=== PATIENT | male | born 1930 | race Caucasian/White ===

== ENCOUNTER 2020-07-09 06:41 | Emergency (ER) | payer MEDICARE, BC ==
--- NOTE | 2020-07-09 07:05 | EDM.PDOC ---
ED HPI GENERAL MEDICAL PROBLEM - General Chief Complaint: Upper Extremity Injury/Pain Stated Complaint: [facility] Time Seen by Provider: 07/09/20 07:04 Source of Information: Reports: Patient, EMS, RN Notes Reviewed - History of Present Illness INITIAL COMMENTS - FREE TEXT/NARRATIVE: 89 yr old male lost his balance getting up to go to the bathroom. Fell more to the L side. L shoulder pain is the worst but also L elbow, R shoulder, mild R wrist discomfort. No chest pain or difficulty breathing. Was found to be covid pos. yesterday with routine testing. He lives at [facility] living. He did not know he was ill. Not sure if he has had fever. He did his head and L face. He does take aspirin but no other blood thinners. Left Shoulder Pain Score (Numeric/FACES): 7 - Related Data Allergies Allergy/AdvReac Type Severity Reaction Status Date / Time ibuprofen Allergy Unknown Other Verified 07/09/20 06:57 lisinopril Allergy Other Verified 07/09/20 06:57 simvastatin Allergy Other Verified 07/09/20 06:57 Home Meds: Home Meds Acetaminophen 1,000 mg PO TID PRN 07/09/20 [History] Furosemide 20 mg PO DAILY 07/09/20 [History] Gabapentin [Neurontin] 100 mg PO BID 07/09/20 [History] Levothyroxine [Synthroid] 100 mcg PO DAILY 07/09/20 [History] Tamsulosin [Flomax] 0.4 mg PO BID 07/09/20 [History] Triamterene/Hydrochlorothiazid [Triamterene-HCTZ 75-50 MG] 25 - 37.5 mg PO DAILY 07/09/20 [History] polyethylene glycoL 3350 [MiraLAX] 17 gm PO BEDTIME 07/09/20 [History] traMADol [Ultram] 50 mg PO QID PRN 07/09/20 [History] Past Medical History HEENT History: Reports: Hard of Hearing, Impaired Vision 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 - Infectious Disease History Infectious Disease History: Reports: Novel Coronavirus - Past Surgical History HEENT Surgical History: Reports: Cataract Surgery Social & Family History - Tobacco Use Tobacco Use Status *Q: Former Tobacco User Used Tobacco, but Quit: Yes Month/Year Tobacco Last Used: 1999 - Caffeine Use Caffeine Use: Reports: None - Recreational Drug Use Recreational Drug Use: No Review of Systems - Review of Systems Review Of Systems: See Below Constitutional: Denies: Chills, Fever Ears: Reports: No Symptoms Nose: Reports: No Symptoms Mouth/Throat: Reports: No Symptoms Respiratory: Reports: Cough (occasiona) Cardiovascular: Denies: Chest Pain GI/Abdominal: Denies: Abdominal Pain, Nausea, Vomiting Musculoskeletal: Reports: Shoulder Pain, Joint Pain (L elbow, R wrist, bilat shoulder). Denies: Neck Pain, Back Pain, Leg Pain Skin: Reports: Bruising, Other (Skin tear R elbow) Neurological: Reports: Dizziness (mild), Weakness (generalized, mild). Denies: Headache, Numbness, Tingling ED EXAM, GENERAL - Physical Exam Exam: See Below General Appearance: Alert, No Apparent Distress Eye Exam: Bilateral Eye: PERRL Throat/Mouth: Normal Inspection Head: Other (small abrasion L forehead and L face) Respiratory/Chest: No Respiratory Distress, Lungs Clear, Normal Breath Sounds, Other (very mild tenderness R lat chest wall). No: Rales, Rhonchi, Wheezing Cardiovascular: Regular Rate, Rhythm GI/Abdominal: Soft, Non-Tender Extremities: Other (mild tenderness both shoulders, L elbow, R wrist, mild pain with motion) Neurological: Alert, Oriented, No Motor/Sensory Deficits Skin Exam: Warm, Dry, Other (small skin tear R elbow) Course - Vital Signs Last Recorded V/S: Last Vital Signs Temp 99.3 F 07/09/20 06:47 Pulse 85 07/09/20 06:47 Resp 22 H 07/09/20 06:47 BP 145/64 H 07/09/20 06:47 Pulse Ox 98 07/09/20 06:47 - Orders/Labs/Meds Orders: Active Orders 24 hr Category Date Time Status Chest 1V Frontal [CR] Stat Exams 07/09/20 07:26 Taken Elbow Min 3V Lt [CR] Stat Exams 07/09/20 07:24 Taken Head wo Cont [CT] Stat Exams 07/09/20 07:25 Taken Pelvis 1V or 2V [CR] Stat Exams 07/09/20 07:24 Taken Shoulder Comp Lt [CR] Stat Exams 07/09/20 07:25 Taken Shoulder Comp Rt [CR] Stat Exams 07/09/20 07:25 Taken Wrist Comp Min 3V Rt [CR] Stat Exams 07/09/20 07:25 Taken Meds: Medications Discontinued Medications Generic Name Dose Route Start Last Admin Trade Name Rashad PRN Reason Stop Dose Admin Acetaminophen 975 mg 07/09/20 10:59 07/09/20 11:03 Tylenol PO 07/09/20 11:00 975 mg NOW ONE Administration Tramadol HCl 50 mg 07/09/20 10:58 07/09/20 11:03 Ultram PO 07/09/20 10:59 50 mg ONETIME ONE Administration - Re-Assessments/Exams Free Text/Narrative Re-Assessment/Exam: 07/09/20 10:12. X rays show no fx. CXR shows mild pul congestion. Sats have been good in the 93 to 95 % range. Head CT no acute findings. Will see if he is able to walk OK. If so he should be OK to go back to [facility] 07/09/20 10:58. Did OK walking with walker, 02 sats 96 to 99 %. 07/09/20 12:55. His nurse has discussed with charge nurse for [facility] they do accept him back. Discharge instr. as documented. Departure - Departure Time of Disposition: 13:09 Disposition: Home, Self-Care 01 Condition: Fair Clinical Impression: Fall, Shoulder contusion, COVID-19 virus infection - Discharge Information Referrals: PCP,None [Ordering Only Provider] - Forms: ED Department Discharge Additional Instructions: Rest. Continue isolation for covid infection. Use walker at all times. Drink plenty of water to maintain hydration. Return to ED for severe difficulty breathing or otherwise as needed. Sepsis Event Note (ED) - Evaluation Sepsis Screening Result: No Definite Risk - Focused Exam Vital Signs: Vital Signs Temp Pulse Resp BP Pulse Ox 07/09/20 06:47 99.3 F 85 22 H 145/64 H 98 - My Orders Last 24 Hours: My Active Orders 07/09/20 07:24 Elbow Min 3V Lt [CR] Stat Pelvis 1V or 2V [CR] Stat 07/09/20 07:25 Head wo Cont [CT] Stat Shoulder Comp Lt [CR] Stat Shoulder Comp Rt [CR] Stat Wrist Comp Min 3V Rt [CR] Stat 07/09/20 07:26 Chest 1V Frontal [CR] Stat - Assessment/Plan Last 24 Hours: My Active Orders 07/09/20 07:24 Elbow Min 3V Lt [CR] Stat Pelvis 1V or 2V [CR] Stat 07/09/20 07:25 Head wo Cont [CT] Stat Shoulder Comp Lt [CR] Stat Shoulder Comp Rt [CR] Stat Wrist Comp Min 3V Rt [CR] Stat 07/09/20 07:26 Chest 1V Frontal [CR] Stat
[2020-07-09] MEDS ORDERED: traMADol 50 MG Tab PO ONE (10:58)
[2020-07-09] MEDS ORDERED: Acetaminophen 325 MG Tab PO ONE (10:59)
--- NOTE | 2020-07-12 10:01 | CT ---
PROCEDURE INFORMATION: Exam: CT Head Without Contrast Exam date and time: 07/09/2020 8:58 AM Age: 89 years old Clinical indication: Injury or trauma; Blunt trauma (contusions or hematomas); Patient HX: Fall, left facial and forehead contusion, PT unable to hold still TECHNIQUE: Imaging protocol: Computed tomography of the head without contrast. Radiation optimization: All CT scans at this facility use at least one of these dose optimization techniques: automated exposure control; mA and/or kV adjustment per patient size (includes targeted exams where dose is matched to clinical indication); or iterative reconstruction. COMPARISON: No relevant prior studies available. FINDINGS: Limitations: There is motion artifact partially degrading examination, greatest superiorly. Brain: There is no acute intracranial hemorrhage. There is lucency in the cerebral white matter, likely microvascular disease although non-specific. Vicente white differentiation is intact. There are no extraaxial fluid collections. No evidence of mass. There is no mass effect or midline shift. Cerebral ventricles: The ventricles and sulci are enlarged, consistent with volume loss / atrophy. No hydrocephalus. Bones/joints: No acute fracture. Paranasal sinuses: There is mild mucosal thickening in ethmoid and maxillary sinuses. Mastoid air cells: No significant mastoid effusion. Orbital cavity: There have been bilateral intraocular lens replacements likely related to cataract surgery. Vasculature: There is vascular calcification. Soft tissues: Unremarkable as visualized. IMPRESSION: 1. Partially motion degraded examination. No evidence of acute intracranial abnormality. No evidence of acute infarction, hemorrhage, or mass. 2. Atrophy and microvascular disease. Thank you for allowing us to participate in the care of your patient. Dictated and Authenticated by: Maura Mclean MD 07/09/2020 10:40 AM Central Time ([place] & [place]) [facility]
--- NOTE | 2020-07-12 10:01 | CR ---
PROCEDURE INFORMATION: Exam: XR Chest, 1 View Exam date and time: 07/09/2020 9:10 AM Age: 89 years old Clinical indication: Injury or trauma; Blunt trauma (contusions or hematomas); Injury details: Fall shoulder pain HX covid positive TECHNIQUE: Imaging protocol: XR of the chest Views: 1 view. COMPARISON: No relevant prior studies available. FINDINGS: Lungs: Lung markings are slightly prominent. No definite focal consolidation or infiltrate. Pleural space: No significant visible pleural effusion. No pneumothorax. Heart/Mediastinum: Cardiac silhouette is mildly prominent. Bones/joints: No acute finding. IMPRESSION: Mild prominence pulmonary markings. No well-defined focal consolidation or infiltrate. Thank you for allowing us to participate in the care of your patient. Dictated and Authenticated by: Maura Mclean MD 07/09/2020 12:12 PM Central Time ([place] & [place]) J[facility]
--- NOTE | 2020-07-12 10:02 | CR ---
PROCEDURE INFORMATION: Exam: XR Pelvis Exam date and time: 07/09/2020 9:14 AM Age: 89 years old Clinical indication: Injury or trauma; Blunt trauma (contusions or hematomas); Bilateral; Pelvic region; Injury details: Fall trauma TECHNIQUE: Imaging protocol: XR pelvis. Views: 1 or 2 view. COMPARISON: No relevant prior studies available. FINDINGS: Bones/joints: There are degenerative changes and mild levoscoliosis in lower spine. There is no evidence of acute fracture. No dislocation. Symphysis pubis and sacroiliac joints appear intact. Soft tissues: Unremarkable. IMPRESSION: No evidence of fracture or dislocation. Thank you for allowing us to participate in the care of your patient. Dictated and Authenticated by: Maura Mclean MD 07/09/2020 12:05 PM Central Time ([place] & [place]) [facility]
--- NOTE | 2020-07-12 10:03 | CR ---
PROCEDURE INFORMATION: Exam: XR Left Shoulder Exam date and time: 07/09/2020 9:19 AM Age: 89 years old Clinical indication: Injury or trauma; Fall; Blunt trauma (contusions or hematomas); Shoulder; Left TECHNIQUE: Imaging protocol: XR Left shoulder. Views: 2 or more views. COMPARISON: No relevant prior studies available. FINDINGS: Bones/joints: There is no evidence of acute fracture. No dislocation. Mild degenerative changes. Soft tissues: Normal. IMPRESSION: No evidence of fracture or dislocation. Thank you for allowing us to participate in the care of your patient. Dictated and Authenticated by: Maura Mclean MD 07/09/2020 12:05 PM Central Time ([place] & [place]) [facility]
--- NOTE | 2020-07-12 10:04 | CR ---
PROCEDURE INFORMATION: Exam: XR Right Shoulder Exam date and time: 07/09/2020 9:25 AM Age: 89 years old Clinical indication: Injury or trauma; Fall; Blunt trauma (contusions or hematomas); Shoulder; Right TECHNIQUE: Imaging protocol: XR Right shoulder. Views: 2 or more views. COMPARISON: DX Shoulder Comp Lt 07/09/2020 9:19 AM FINDINGS: Bones/joints: There is no evidence of acute fracture. No dislocation. Mild degenerative changes. Soft tissues: Normal. IMPRESSION: No evidence of fracture or dislocation. Thank you for allowing us to participate in the care of your patient. Dictated and Authenticated by: Maura Mclean MD 07/09/2020 12:06 PM Central Time ([place] & [place]) J[facility]
--- NOTE | 2020-07-12 10:05 | CR ---
PROCEDURE INFORMATION: Exam: XR Right Wrist Exam date and time: 07/09/2020 9:30 AM Age: 89 years old Clinical indication: Injury or trauma; Fall; Blunt trauma (contusions or hematomas); Wrist; Right TECHNIQUE: Imaging protocol: XR Right wrist. Views: 3 or more views. COMPARISON: No relevant prior studies available. FINDINGS: Bones/joints: There are degenerative changes between proximal and distal radial carpal rows and at 1st carpometacarpal joint. There is no evidence of acute fracture. No dislocation. Soft tissues: Distal arterial calcifications noted. IMPRESSION: No evidence of fracture or dislocation. Thank you for allowing us to participate in the care of your patient. Dictated and Authenticated by: Maura Mclean MD 07/09/2020 12:07 PM Central Time ([place] & [place]) JAMES
--- NOTE | 2020-07-12 10:06 | CR ---
PROCEDURE INFORMATION: Exam: XR Left Elbow Exam date and time: 07/09/2020 9:34 AM Age: 89 years old Clinical indication: Injury or trauma; Fall; Blunt trauma (contusions or hematomas); Elbow; Left TECHNIQUE: Imaging protocol: XR Left elbow. Views: 3 or more views. COMPARISON: No relevant prior studies available. FINDINGS: Bones/joints: There are degenerative changes noted at humeral ulnar joint and radial head. There is no evidence of acute fracture. Soft tissues: No true lateral view to accurately assess for joint effusion. IMPRESSION: No evidence of fracture. Thank you for allowing us to participate in the care of your patient. Dictated and Authenticated by: Maura Mclean MD 07/09/2020 12:08 PM Central Time ([place] & [place]) [facility]
== END 2020-07-09 14:35 | disposition home or self-care (01) ==
LOC: JD.ED 06:41
DX: S51.011A Laceration without foreign body of right elbow, initial encounter (principal); S40.012A Contusion of left shoulder, initial encounter; S00.81XA Abrasion of other part of head, initial encounter; U07.1 COVID-19; Z79.899 Other long term (current) drug therapy; Z87.891 Personal history of nicotine dependence; W01.0XXA Fall on same level from slipping, tripping and stumbling without subsequent striking against object, initial encounter
CPT/HCPCS: 70450; 71045; 72170; 73030; 73080; 73110; 99285; A9270; 99283

== ENCOUNTER 2020-07-12 23:35 | Inpatient (IN) | payer MEDICARE, BC ==
[2020-07-13] MEDS ORDERED: Sodium Chloride 0.9% 10 ML Syringe FLUSH PRN (00:01)
[2020-07-13] MEDS ORDERED: Dextrose 5%-Lactated Ringers 1,000 ML IV SCH (00:30)
--- NOTE | 2020-07-13 00:44 | EDM.PDOC ---
<Amaury Mora - Last Filed: 07/13/20 06:53> ED HPI GENERAL MEDICAL PROBLEM - General Chief Complaint: General Stated Complaint: apryl ambulance Time Seen by Provider: 07/12/20 23:54 Source of Information: Reports: Patient, EMS, Old Records, RN Notes Reviewed - History of Present Illness INITIAL COMMENTS - FREE TEXT/NARRATIVE: 89 year old male is brought in by ambulance with hx of rapidly worsening generalized weakness. Also is reported to be having a lot of low back pain when he does try get up or move. He was found to have covid on a routine test for residents of [facility] about a week ago. He was evaluated in this ED for shoulder, elbow, wrist and hip pain status post fall 3 1/2 days ago at this ED. There was not mention or documentation of back pain or injury at that time. At the time he was noted to have generalized weakness but was able to ambulate OK with a walker, allowed to go back to [facility]. He now is reported to get up or ambulate on his own due to low back pain and generalized weakness. He is reported to have hx of renal cancer and there is consideration of going on hospice but that has not yet been done. His daughter tells me that he was just diagnosed with L renal cancer about 6 weeks ago. His family has just recently moved he and his to [facility] with plan for him to be admitted to [facility] when he would be no longer able to function at [facility] which has now happened. His daughter states he has mets to the [facility]. Pt has refused option of chemo or Radiation Therapy. Family realizes he is going to from the cancer, wants him kept safe and kept comfortable. Therefore he is DNR status at this time. Lower Back Pain Score (Numeric/FACES): 8 - Related Data Allergies Allergy/AdvReac Type Severity Reaction Status Date / Time ibuprofen Allergy Unknown Other Verified 07/12/20 23:47 lisinopril Allergy Other Verified 07/12/20 23:47 simvastatin Allergy Other Verified 07/12/20 23:47 Home Meds: Home Meds Acetaminophen 500 mg PO TID PRN 07/09/20 [History] Furosemide 20 mg PO DAILY 07/09/20 [History] Gabapentin [Neurontin] 100 mg PO BID 07/09/20 [History] Levothyroxine [Synthroid] 100 mcg PO DAILY 07/09/20 [History] Tamsulosin [Flomax] 0.4 mg PO BID 07/09/20 [History] Triamterene/Hydrochlorothiazid [Triamterene-HCTZ 75-50 MG] 25 - 37.5 mg PO DAILY 07/09/20 [History] polyethylene glycoL 3350 [MiraLAX] 17 gm PO BEDTIME 07/09/20 [History] traMADol [Ultram] 50 mg PO QID PRN 07/09/20 [History] Past Medical History HEENT History: Reports: Hard of Hearing, Impaired Vision 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 - Infectious Disease History Infectious Disease History: Reports: Novel Coronavirus - Past Surgical History HEENT Surgical History: Reports: Cataract Surgery Social & Family History - Tobacco Use Tobacco Use Status *Q: Unknown Ever Used Tobacco - Caffeine Use Caffeine Use: Reports: None - Recreational Drug Use Recreational Drug Use: No ED ROS GENERAL - Review of Systems Review Of Systems: See Below Constitutional: Denies: Fever (There is no rport of fever. ) HEENT: Denies: Rhinitis, Sinus Problem, Throat Pain Respiratory: Reports: Shortness of Breath (occasional), Cough (occasional mild cough) Cardiovascular: Denies: Chest Pain, Edema Endocrine: Reports: Fatigue GI/Abdominal: Reports: Diarrhea (yesterday), Decreased Appetite. Denies: Abdominal Pain, Nausea, Vomiting Musculoskeletal: Reports: Back Pain Skin: Reports: Other (suffered small skin tear R elbow with his fall 3 1/2 days ago) Neurological: Reports: Dizziness, Weakness (generalized) ED EXAM, GENERAL - Physical Exam Exam: See Below General Appearance: Alert, No Apparent Distress (at rest) Eye Exam: Bilateral Eye: PERRL Ear Exam: Bilateral Ear: Auricle Normal Nose: Normal Inspection Respiratory/Chest: No Respiratory Distress, Lungs Clear, Normal Breath Sounds Cardiovascular: Regular Rate, Rhythm GI/Abdominal: Soft, Non-Tender Back Exam: No: CVA Tenderness (L), CVA Tenderness (R) Extremities: No: Pedal Edema, Leg Pain, Increased Warmth, Redness Neurological: Alert, No Motor/Sensory Deficits (no focal weakness) #1 Interpretation EKG Date: 07/13/20 Rhythm: NSR Rate (Beats/Min): 79 [place]: Normal P-Wave: Present QRS: Other (q waves inf. and ant. leads) ST-T: Normal Course - Re-Assessments/Exams Free Text/Narrative Re-Assessment/Exam: 07/13/20 03:22. Inflamatory markers are mildly elevated. CXR shows prominent pulmonary markings improved from CXR of 3 days ago, with underlying COPD. See Radiologist report for details. He is too weak and having too much pain to go back to [address] [facility]. He has failed that option having tried to send him back 3 1/2 days ago. We are currently on diversion but may have 1 or 2 discharges today. He will lbenefit from some IV fluids for hydration, pain management. Have ordered morphine 2 mg IV for pain. 07/13/20 06:53. Has required another 2 mg morphine IV for pain. approaching change of shift. Will transfer care to Dr Vences as we await a bed to hopefully open up for admission. Departure - Departure Disposition: Admitted As Inpatient 68 Condition: Serious Clinical Impression: Pneumonia due to COVID-19 virus, Generalized weakness, Inability to walk Back pain Qualifiers: Back pain location: low back pain Chronicity: acute Back pain laterality: unspecified Sciatica presence: without sciatica Qualified Code(s): M54.5 - Low back pain Renal cancer Qualifiers: Laterality: left Qualified Code(s): C64.2 - Malignant neoplasm of left kidney, except renal pelvis - Discharge Information Referrals: Tirso Magdaleno MD [Primary Care Provider] - Forms: ED Department Discharge Additional Instructions: Patient will be admitted here anticipating [facility] placement. Sepsis Event Note (ED) - Evaluation Sepsis Screening Result: No Definite Risk <Joaquin Vences - Last Filed: 07/13/20 14:36> Course - Vital Signs Last Recorded V/S: Last Vital Signs Temp 36.8 C 07/13/20 05:22 Pulse 63 07/13/20 05:22 Resp 18 07/13/20 05:22 BP 150/84 H 07/13/20 05:22 Pulse Ox 94 L 07/13/20 05:22 - Orders/Labs/Meds Orders: Active Orders 24 hr Category Date Time Status EKG 12 Lead [EKG Documentation Completion] [RC] STAT Care 07/13/20 00:02 Active Peripheral IV Care [RC] . DIRECTED Care 07/13/20 00:02 Active Dextrose 5%-Lactated Ringers 1,000 ml Med 07/13/20 00:30 Active IV ASDIRECTED Sodium Chloride 0.9% [Normal Saline] 1,000 ml Med 07/13/20 01:45 Active IV ONETIME Sodium Chloride 0.9% [Saline Flush] Med 07/13/20 00:01 Active 10 ml FLUSH ASDIRECTED PRN Peripheral IV Insertion Adult [OM.PC] Stat Oth 07/13/20 00:02 Ordered Medication Orders Dextrose/Lactated Ringer's (Dextrose 5%-Lactated Ringers) 1,000 mls @ 75 mls/hr IV ASDIRECTED ARIANNA Last Admin: 07/13/20 00:49 Dose: 75 mls/hr Documented by: BENJAMIN Sodium Chloride (Normal Saline) 1,000 mls @ 999 mls/hr IV ONETIME ARIANNA Last Admin: 07/13/20 01:42 Dose: 999 mls/hr Documented by: BENJAMIN Sodium Chloride (Saline Flush) 10 ml FLUSH ASDIRECTED PRN PRN Reason: Keep Vein Open Last Admin: 07/13/20 00:50 Dose: 10 ml Documented by: BENJAMIN Labs: Laboratory Tests 07/13/20 07/13/20 07/13/20 Range/Units 00:18 00:18 00:18 WBC 1.41 L* (4.23-9.07) K/mm3 RBC 4.06 L (4.63-6.08) M/mm3 Hgb 10.3 L (13.7-17.5) gm/dl Hct 32.6 L (40.1-51.0) % MCV 80.3 (79.0-92.2) fl MCH 25.4 L (25.7-32.2) pg MCHC 31.6 L (32.2-35.5) g/dl RDW Std Deviation 60.0 H (35.1-43.9) fL Plt Count 145 L (163-337) K/mm3 MPV 9.1 L (9.4-12.3) fl Neut % (Auto) 62.5 (34.0-67.9) % Lymph % (Auto) 14.9 L (21.8-53.1) % [place] % (Auto) 19.1 H (5.3-12.2) % Eos % (Auto) 0 L (0.8-7.0) Baso % (Auto) 0.7 (0.1-1.2) % Neut # (Auto) 0.88 L (1.78-5.38) K/mm3 Lymph # (Auto) 0.21 L (1.32-3.57) K/mm3 [place] # (Auto) 0.27 L (0.30-0.82) K/mm3 Eos # (Auto) 0.00 L (0.04-0.54) K/mm3 Baso # (Auto) 0.01 (0.01-0.08) K/mm3 Manual Slide Review Abnormal smear D-Dimer, Quantitative 1.00 H (0.19-0.50) mg/L Sodium 132 L (136-145) mEq/L Potassium 4.2 (3.5-5.1) mEq/L Chloride 96 L (98-107) mEq/L Carbon Dioxide 26 (21-32) mEq/L Anion Gap 14.2 (5-15) BUN 44 H (7-18) mg/dL Creatinine 1.3 (0.7-1.3) mg/dL Est Cr Clr Drug Dosing TNP Estimated GFR (MDRD) 52 (>60) mL/min BUN/Creatinine Ratio 33.8 H (14-18) Glucose 141 H (83-115) mg/dL Calcium 9.0 (8.5-10.1) mg/dL Ferritin (26-388) ng/ml Total Bilirubin 0.7 (0.2-1.0) mg/dL AST 32 (15-37) U/L ALT 20 (16-63) U/L Alkaline Phosphatase 235 H (46-116) U/L Lactate Dehydrogenase 201 (85-227) U/L Troponin I < 0.017 (0.00-0.056) ng/mL C-Reactive Protein 14.9 H* (<1.0) mg/dL Total Protein 8.1 (6.4-8.2) g/dl Albumin 2.4 L (3.4-5.0) g/dl Globulin 5.7 gm/dL Albumin/Globulin Ratio 0.4 L (1-2) Urine Color (Yellow) Urine Appearance (Clear) Urine pH (5.0-8.0) Ur Specific [place] (1.005-1.030) Urine Protein (Negative) Urine Glucose (UA) (Negative) Urine Ketones (Negative) Urine Occult Blood (Negative) Urine Nitrite (Negative) Urine Bilirubin (Negative) Urine Urobilinogen (0.2-1.0) Ur Leukocyte Esterase (Negative) U Hyaline Cast (Auto) (0-5) /lpf Urine RBC (0-5) /hpf Urine WBC (0-5) /hpf Ur Transition Epith Cell (0-5) Urine Bacteria (FEW) /hpf Urine Mucus (FEW) /hpf 07/13/20 07/13/20 Range/Units 00:18 02:15 WBC (4.23-9.07) K/mm3 RBC (4.63-6.08) M/mm3 Hgb (13.7-17.5) gm/dl Hct (40.1-51.0) % MCV (79.0-92.2) fl MCH (25.7-32.2) pg MCHC (32.2-35.5) g/dl RDW Std Deviation (35.1-43.9) fL Plt Count (163-337) K/mm3 MPV (9.4-12.3) fl Neut % (Auto) (34.0-67.9) % Lymph % (Auto) (21.8-53.1) % [place] % (Auto) (5.3-12.2) % Eos % (Auto) (0.8-7.0) Baso % (Auto) (0.1-1.2) % Neut # (Auto) (1.78-5.38) K/mm3 Lymph # (Auto) (1.32-3.57) K/mm3 [place] # (Auto) (0.30-0.82) K/mm3 Eos # (Auto) (0.04-0.54) K/mm3 Baso # (Auto) (0.01-0.08) K/mm3 Manual Slide Review D-Dimer, Quantitative (0.19-0.50) mg/L Sodium (136-145) mEq/L Potassium (3.5-5.1) mEq/L Chloride (98-107) mEq/L Carbon Dioxide (21-32) mEq/L Anion Gap (5-15) BUN (7-18) mg/dL Creatinine (0.7-1.3) mg/dL Est Cr Clr Drug Dosing Estimated GFR (MDRD) (>60) mL/min BUN/Creatinine Ratio (14-18) Glucose (83-115) mg/dL Calcium (8.5-10.1) mg/dL Ferritin 437 H (26-388) ng/ml Total Bilirubin (0.2-1.0) mg/dL AST (15-37) U/L ALT (16-63) U/L Alkaline Phosphatase (46-116) U/L Lactate Dehydrogenase (85-227) U/L Troponin I (0.00-0.056) ng/mL C-Reactive Protein (<1.0) mg/dL Total Protein (6.4-8.2) g/dl Albumin (3.4-5.0) g/dl Globulin gm/dL Albumin/Globulin Ratio (1-2) Urine Color Yellow (Yellow) Urine Appearance Clear (Clear) Urine pH 6.0 (5.0-8.0) Ur Specific [place] 1.025 (1.005-1.030) Urine Protein 2+ H (Negative) Urine Glucose (UA) Negative (Negative) Urine Ketones Negative (Negative) Urine Occult Blood 3+ H (Negative) Urine Nitrite Negative (Negative) Urine Bilirubin Negative (Negative) Urine Urobilinogen 1.0 (0.2-1.0) Ur Leukocyte Esterase Negative (Negative) U Hyaline Cast (Auto) 0-5 (0-5) /lpf Urine RBC 50-75 H (0-5) /hpf Urine WBC 0-5 (0-5) /hpf Ur Transition Epith Cell 0-5 (0-5) Urine Bacteria Moderate H (FEW) /hpf Urine Mucus Few (FEW) /hpf Meds: Medications Generic Name Dose Route Start Last Admin Trade Name Freq PRN Reason Stop Dose Admin Dextrose/Lactated Ringer's 1,000 mls @ 75 mls/hr 07/13/20 00:30 07/13/20 00:49 Dextrose 5%-Lactated Ringers IV 75 mls/hr ASDIRECTED ARIANNA Administration Sodium Chloride 1,000 mls @ 999 mls/hr 07/13/20 01:45 07/13/20 01:42 Normal Saline IV 999 mls/hr ONETIME ARIANNA Administration Sodium Chloride 10 ml 07/13/20 00:01 07/13/20 00:50 Saline Flush FLUSH 10 ml ASDIRECTED PRN Administration Keep Vein Open Discontinued Medications Generic Name Dose Route Start Last Admin Trade Name Rashad PRN Reason Stop Dose Admin Acetaminophen 650 mg 07/13/20 01:07 07/13/20 01:21 Tylenol PO 07/13/20 01:08 650 mg NOW STA Administration Acetaminophen 975 mg 07/13/20 14:01 Tylenol PO 07/13/20 14:02 NOW ONE Morphine Sulfate 2 mg 07/13/20 03:06 07/13/20 03:20 Morphine IVPUSH 07/13/20 03:07 2 mg ONETIME ONE Administration Morphine Sulfate 2 mg 07/13/20 05:14 07/13/20 05:20 Morphine IVPUSH 07/13/20 05:15 2 mg ONETIME ONE Administration Tramadol HCl 50 mg 07/13/20 14:01 Ultram PO 07/13/20 14:02 ONETIME ONE - Re-Assessments/Exams Free Text/Narrative Re-Assessment/Exam: 07/13/20 07:58 Betty from social work is here to evaluate the patient for intermediate placement. The patient has some discomfort and has been restless at times in the night he has done well with morphine. Patient is alert and oriented and answering questions appropriately at this time he has no complaints or requests currently. There is at this time that the best option for this gentleman is to have him admitted currently we do have a bed opening up early this afternoon. We will keep an eye on this. 07/13/20 14:[address] Fall who is kind enough to admit the patient to work on long-term placement. Departure - Departure Time of Disposition: 14:32 Sepsis Event Note (ED) - Focused Exam Vital Signs: Vital Signs Temp Pulse Resp BP Pulse Ox 07/13/20 05:22 36.8 C 63 18 150/84 H 94 L
[2020-07-13] MEDS ORDERED: Acetaminophen 325 MG Tab PO STA (01:07)
[2020-07-13] MEDS ORDERED: Sodium Chloride 0.9% 1,000 ML IV SCH (01:45)
[2020-07-13] MEDS ORDERED: Morphine 2 MG/ML SYRINGE IVPUSH ONE ×2 (03:06→05:14)
--- NOTE | 2020-07-13 09:17 | CR ---
Chest: Portable view of the chest was obtained. Comparison: Prior chest x-ray of 07/09/20. Findings: Lucency is seen within the lateral left chest believed to be due to skin line. Lungs are clear with no acute parenchymal change. Bony structures are grossly intact. Heart shows a slight left ventricular configuration with mild tortuosity of the thoracic aorta. Impression: 1. Nothing acute is appreciated. Diagnostic code #2 I agree with preliminary report from [facility], finalized on 07/13/20, 2:53 AM TRAILER TECHNICIAN JAMES
--- NOTE | 2020-07-13 09:18 | CR ---
Lumbar spine: AP and lateral views of the lumbar spine were obtained. Comparison: No prior lumbar spine study. Diffuse disc space narrowing seen throughout the lower thoracic and lumbar spine. Moderate compression deformity is seen of L1 which is most likely old. No abnormal subluxation is seen. Minimal scoliosis is noted. Scattered endplate osteophytes are seen. Vascular calcification is present. Impression: 1. Diffuse degenerative change as noted above. 2. Compression deformity of L2. Diagnostic code #3 I agree with preliminary report from [facility], finalized on 07/13/20, 2:54 AM QUE RAMIREZ
[2020-07-13] MEDS ORDERED: Acetaminophen 325 MG Tab PO ONE (14:01)
[2020-07-13] MEDS ORDERED: traMADol 50 MG Tab PO ONE (14:01)
[2020-07-13] MEDS: traMADol 50 MG Tab PO PRN (20:05)
[2020-07-13] MEDS: Acetaminophen 325 MG Tab PO PRN (20:06)
--- NOTE | 2020-07-13 20:28 | PCM.HP.2 ---
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 Patient states that the weakness has been going on for approximately 1 week and yesterday was unable to walk because of his weakness. Patient was kept in the emergency department overnight secondary to no beds being available. Patient is unable to return to [facility] because of his weakness. Patient has refused treatment with radiation and chemo and he is not a surgical candidate. He request to be kept comfortable, continue on his medications, to be treated for his pain. He does complain of bilateral lower extremity leg pain especially in his calves. He uses some kind of ointment on them. Lower Back Pain Score (Numeric/FACES): 8 - Related Data Allergies/Adverse Reactions: Allergies Allergy/AdvReac Type Severity Reaction Status Date / Time ibuprofen Allergy Unknown Other Verified 07/12/20 23:47 lisinopril Allergy Other Verified 07/12/20 23:47 simvastatin Allergy Other Verified 07/12/20 23:47 Home Medications: Home Meds Acetaminophen 1,000 mg PO TID PRN 07/09/20 [History] Furosemide 20 mg PO DAILY 07/09/20 [History] Gabapentin [Neurontin] 100 mg PO BID 07/09/20 [History] Levothyroxine [Synthroid] 100 mcg PO DAILY 07/09/20 [History] Tamsulosin [Flomax] 0.4 mg PO BID 07/09/20 [History] Triamterene/Hydrochlorothiazid [Triamterene-HCTZ 75-50 MG] 25 - 37.5 mg PO DAILY 07/09/20 [History] polyethylene glycoL 3350 [MiraLAX] 17 gm PO BEDTIME 07/09/20 [History] traMADol [Ultram] 50 mg PO QID PRN 07/09/20 [History] Past Medical History HEENT History: Reports: Hard of Hearing, Impaired Vision Cardiovascular History: Reports: Hypertension Respiratory History: Reports: COPD Genitourinary History: Reports: Other (See Below) Other Genitourinary History: Kidney Cancer Musculoskeletal History: Reports: Back Pain, Chronic 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 - Infectious Disease History Infectious Disease History: Reports: Novel Coronavirus - Past Surgical History HEENT Surgical History: Reports: Cataract Surgery Social & Family History - Tobacco Use Tobacco Use Status *Q: Former Tobacco User Used Tobacco, but Quit: Yes Month/Year Tobacco Last Used: 1989 Second Hand Smoke Exposure: No - Caffeine Use Caffeine Use: Reports: None - Recreational Drug Use Recreational Drug Use: No H&P Review of Systems - Review of Systems: Review Of Systems: Comprehensive ROS is negative, except as noted in HPI. Exam - Exam Exam: See Below - Vital Signs Vital Signs: Last Vital Signs Temp 98.2 F 07/13/20 05:22 Pulse 63 07/13/20 05:22 Resp 18 07/13/20 05:22 BP 150/84 H 07/13/20 05:22 Pulse Ox 94 L 07/13/20 05:22 Weight: 159 lb 13.362 oz - Exam Quality Assessment: No: Supplemental Oxygen General: Alert, Oriented HEENT: Conjunctiva Clear, Mucosa Moist & [place], Normal Nasal Septum Neck: Supple, Trachea Midline, 2 Lungs: Normal Respiratory Effort, Rales (Bibasilar) Cardiovascular: Regular Rate, Regular Rhythm GI/Abdominal Exam: Normal Bowel Sounds, Soft, Non-Tender, No Distention, No Abnormal Bruit Extremities: Normal Inspection, No Pedal Edema, Leg Pain (Bilateral calf tenderness). No: Non-Tender Skin: Warm, Dry, Intact Neuro Extensive - Mental Status: Alert, Normal Mood/Affect, Normal Cognition, Memory Intact Psychiatric: Alert, Normal Affect, Normal Mood - Patient Data Lab Results Last 24 hrs: Laboratory Results - last 24 hr 07/13/20 07/13/20 07/13/20 Range/Units 00:18 00:18 00:18 WBC 1.41 L* (4.23-9.07) K/mm3 RBC 4.06 L (4.63-6.08) M/mm3 Hgb 10.3 L (13.7-17.5) gm/dl Hct 32.6 L (40.1-51.0) % MCV 80.3 (79.0-92.2) fl MCH 25.4 L (25.7-32.2) pg MCHC 31.6 L (32.2-35.5) g/dl RDW Std Deviation 60.0 H (35.1-43.9) fL Plt Count 145 L (163-337) K/mm3 MPV 9.1 L (9.4-12.3) fl Neut % (Auto) 62.5 (34.0-67.9) % Lymph % (Auto) 14.9 L (21.8-53.1) % [place] % (Auto) 19.1 H (5.3-12.2) % Eos % (Auto) 0 L (0.8-7.0) Baso % (Auto) 0.7 (0.1-1.2) % Neut # (Auto) 0.88 L (1.78-5.38) K/mm3 Lymph # (Auto) 0.21 L (1.32-3.57) K/mm3 [place] # (Auto) 0.27 L (0.30-0.82) K/mm3 Eos # (Auto) 0.00 L (0.04-0.54) K/mm3 Baso # (Auto) 0.01 (0.01-0.08) K/mm3 Manual Slide Review Abnormal smear D-Dimer, Quantitative 1.00 H (0.19-0.50) mg/L Sodium 132 L (136-145) mEq/L Potassium 4.2 (3.5-5.1) mEq/L Chloride 96 L (98-107) mEq/L Carbon Dioxide 26 (21-32) mEq/L Anion Gap 14.2 (5-15) BUN 44 H (7-18) mg/dL Creatinine 1.3 (0.7-1.3) mg/dL Est Cr Clr Drug Dosing TNP Estimated GFR (MDRD) 52 (>60) mL/min BUN/Creatinine Ratio 33.8 H (14-18) Glucose 141 H (83-115) mg/dL Calcium 9.0 (8.5-10.1) mg/dL Ferritin (26-388) ng/ml Total Bilirubin 0.7 (0.2-1.0) mg/dL AST 32 (15-37) U/L ALT 20 (16-63) U/L Alkaline Phosphatase 235 H (46-116) U/L Lactate Dehydrogenase 201 (85-227) U/L Troponin I < 0.017 (0.00-0.056) ng/mL C-Reactive Protein 14.9 H* (<1.0) mg/dL Total Protein 8.1 (6.4-8.2) g/dl Albumin 2.4 L (3.4-5.0) g/dl Globulin 5.7 gm/dL Albumin/Globulin Ratio 0.4 L (1-2) Urine Color (Yellow) Urine Appearance (Clear) Urine pH (5.0-8.0) Ur Specific [place] (1.005-1.030) Urine Protein (Negative) Urine Glucose (UA) (Negative) Urine Ketones (Negative) Urine Occult Blood (Negative) Urine Nitrite (Negative) Urine Bilirubin (Negative) Urine Urobilinogen (0.2-1.0) Ur Leukocyte Esterase (Negative) U Hyaline Cast (Auto) (0-5) /lpf Urine RBC (0-5) /hpf Urine WBC (0-5) /hpf Ur Transition Epith Cell (0-5) Urine Bacteria (FEW) /hpf Urine Mucus (FEW) /hpf 07/13/20 07/13/20 Range/Units 00:18 02:15 WBC (4.23-9.07) K/mm3 RBC (4.63-6.08) M/mm3 Hgb (13.7-17.5) gm/dl Hct (40.1-51.0) % MCV (79.0-92.2) fl MCH (25.7-32.2) pg MCHC (32.2-35.5) g/dl RDW Std Deviation (35.1-43.9) fL Plt Count (163-337) K/mm3 MPV (9.4-12.3) fl Neut % (Auto) (34.0-67.9) % Lymph % (Auto) (21.8-53.1) % [place] % (Auto) (5.3-12.2) % Eos % (Auto) (0.8-7.0) Baso % (Auto) (0.1-1.2) % Neut # (Auto) (1.78-5.38) K/mm3 Lymph # (Auto) (1.32-3.57) K/mm3 [place] # (Auto) (0.30-0.82) K/mm3 Eos # (Auto) (0.04-0.54) K/mm3 Baso # (Auto) (0.01-0.08) K/mm3 Manual Slide Review D-Dimer, Quantitative (0.19-0.50) mg/L Sodium (136-145) mEq/L Potassium (3.5-5.1) mEq/L Chloride (98-107) mEq/L Carbon Dioxide (21-32) mEq/L Anion Gap (5-15) BUN (7-18) mg/dL Creatinine (0.7-1.3) mg/dL Est Cr Clr Drug Dosing Estimated GFR (MDRD) (>60) mL/min BUN/Creatinine Ratio (14-18) Glucose (83-115) mg/dL Calcium (8.5-10.1) mg/dL Ferritin 437 H (26-388) ng/ml Total Bilirubin (0.2-1.0) mg/dL AST (15-37) U/L ALT (16-63) U/L Alkaline Phosphatase (46-116) U/L Lactate Dehydrogenase (85-227) U/L Troponin I (0.00-0.056) ng/mL C-Reactive Protein (<1.0) mg/dL Total Protein (6.4-8.2) g/dl Albumin (3.4-5.0) g/dl Globulin gm/dL Albumin/Globulin Ratio (1-2) Urine Color Yellow (Yellow) Urine Appearance Clear (Clear) Urine pH 6.0 (5.0-8.0) Ur Specific [place] 1.025 (1.005-1.030) Urine Protein 2+ H (Negative) Urine Glucose (UA) Negative (Negative) Urine Ketones Negative (Negative) Urine Occult Blood 3+ H (Negative) Urine Nitrite Negative (Negative) Urine Bilirubin Negative (Negative) Urine Urobilinogen 1.0 (0.2-1.0) Ur Leukocyte Esterase Negative (Negative) U Hyaline Cast (Auto) 0-5 (0-5) /lpf Urine RBC 50-75 H (0-5) /hpf Urine WBC 0-5 (0-5) /hpf Ur Transition Epith Cell 0-5 (0-5) Urine Bacteria Moderate H (FEW) /hpf Urine Mucus Few (FEW) /hpf Result Diagrams: 07/13/20 00:18 07/13/20 00:18 Imaging Impressions Last 24 hrs: Chest x-ray showed improvement in pulmonary markings from prior study 3 days earlier. X-ray of the lumbosacral spine showed severe lumbar spondylosis with old compression fracture of L1 without retropulsed fracture fragment. Sepsis Event Note - Evaluation Sepsis Screening Result: No Definite Risk - Problem List (1) Failure to thrive in adult SNOMED Code(s): 545324425 ICD Code: R62.7 - ADULT FAILURE TO THRIVE Status: Acute Current Visit: Yes (2) Leg pain, bilateral SNOMED Code(s): 58500499 ICD Code: M79.604 - PAIN IN RIGHT LEG; M79.605 - PAIN IN LEFT LEG Status: Acute Current Visit: Yes (3) Back pain SNOMED Code(s): 761090872 ICD Code: M54.9 - DORSALGIA, UNSPECIFIED Status: Acute Current Visit: Yes Qualifiers: Back pain location: low back pain Chronicity: acute Back pain laterality: unspecified Sciatica presence: without sciatica Qualified Code(s): M54.5 - Low back pain (4) Generalized weakness SNOMED Code(s): 69472260 ICD Code: R53.1 - WEAKNESS Status: Acute Current Visit: Yes (5) Pneumonia due to COVID-19 virus SNOMED Code(s): 402588555979252877 ICD Code: U07.1 - COVID-19; J12.89 - OTHER VIRAL PNEUMONIA Status: Acute Current Visit: Yes (6) Renal cancer Status: Acute Current Visit: Yes Qualifiers: Laterality: left Qualified Code(s): C64.2 - Malignant neoplasm of left kidney, except renal pelvis (7) COVID-19 virus infection SNOMED Code(s): 536861284 ICD Code: U07.1 - COVID-19 Status: Acute Current Visit: No Problem List Initiated/Reviewed/Updated: Yes Orders Last 24hrs: Active Orders 24 hr Category Date Time Status Patient Status [ADT] Routine ADT 07/13/20 16:44 Active EKG 12 Lead [EKG Documentation Completion] [RC] STAT Care 07/13/20 00:02 Active Oxygen Therapy [RC] PRN Care 07/13/20 18:21 Active Peripheral IV Care [RC] Q2HR Care 07/13/20 00:02 Active Up With Assistance [RC] ASDIRECTED Care 07/13/20 18:21 Active VTE/DVT Education [RC] PER UNIT ROUTINE Care 07/13/20 18:21 Active Vital Signs [RC] Q4H Care 07/13/20 18:21 Active OT Evaluation and Treatment [CONS] Routine Cons 07/13/20 18:21 Active PT Evaluation and Treatment [CONS] Routine Cons 07/13/20 18:21 Active Regular Diet [DIET] Diet 07/13/20 Dinner Active Acetaminophen [TylenoL] Med 07/13/20 18:21 Active 650 mg PO Q4H PRN Acetaminophen/HYDROcodone [[place] 325-5 MG] Med 07/13/20 18:21 Active 2 tab PO Q4H PRN Dextrose 5%-Lactated Ringers 1,000 ml Med 07/13/20 00:30 Active IV ASDIRECTED Furosemide [Lasix] Med 07/14/20 09:00 Active 20 mg PO DAILY Gabapentin [Neurontin] Med 07/13/20 21:00 Active 100 mg PO BID Levothyroxine [Synthroid] Med 07/14/20 06:00 Active 100 mcg PO ACBREAKFAST Morphine Med 07/13/20 18:21 Active 2 mg IVPUSH Q2H PRN Ondansetron [Zofran] Med 07/13/20 18:21 Active 4 mg IV Q4H PRN Sodium Chloride 0.9% [Normal Saline] 1,000 ml Med 07/13/20 01:45 Active IV ONETIME Sodium Chloride 0.9% [Saline Flush] Med 07/13/20 00:01 Active 10 ml FLUSH ASDIRECTED PRN Tamsulosin [Flomax] Med 07/13/20 21:00 Active 0.4 mg PO BID polyethylene glycoL 3350 [MiraLAX] Med 07/13/20 21:00 Active 17 gm PO BEDTIME traMADol [Ultram] Med 07/13/20 18:20 Active 50 mg PO QID PRN Peripheral IV Insertion Adult [OM.PC] Stat Oth 07/13/20 00:02 Ordered Resuscitation Status Routine Resus Stat 07/13/20 18:21 Ordered Medication Orders Acetaminophen (Tylenol) 650 mg PO Q4H PRN PRN Reason: Pain (Mild 1-3)/fever Last Admin: 07/13/20 20:06 Dose: 650 mg Documented by: HERMMIC Hydrocodone Bitart/Acetaminophen ([place] 325-5 Mg) 2 tab PO Q4H PRN PRN Reason: Pain (moderate 4-6) Furosemide (Lasix) 20 mg PO DAILY [facility] Gabapentin (Neurontin) 100 mg PO BID [facility] Dextrose/Lactated Ringer's (Dextrose 5%-Lactated Ringers) 1,000 mls @ 75 mls/hr IV ASDIRECTED [facility] Last Admin: 07/13/20 00:49 Dose: 75 mls/hr Documented by: BENJAMIN Sodium Chloride (Normal Saline) 1,000 mls @ 999 mls/hr IV ONETIME [facility] Last Admin: 07/13/20 01:42 Dose: 999 mls/hr Documented by: BENJAMIN Levothyroxine Sodium (Synthroid) 100 mcg PO ACBREAKFAST [facility] Morphine Sulfate (Morphine) 2 mg IVPUSH Q2H PRN PRN Reason: Pain (severe 7-10) Stop: 07/14/20 18:22 Ondansetron HCl (Zofran) 4 mg IV Q4H PRN PRN Reason: Nausea/Vomiting Polyethylene Glycol (Miralax) 17 gm PO BEDTIME [facility] Sodium Chloride (Saline Flush) 10 ml FLUSH ASDIRECTED PRN PRN Reason: Keep Vein Open Last Admin: 07/13/20 00:50 Dose: 10 ml Documented by: BENJAMIN Tamsulosin HCl (Flomax) 0.4 mg PO BID [facility] Tramadol HCl (Ultram) 50 mg PO QID PRN PRN Reason: Pain Last Admin: 07/13/20 20:05 Dose: 50 mg Documented by: HERMMIC Assessment/Plan Comment:: Assessment Failure to thrive Metastatic renal cell carcinomanot receiving treatment COVID-19 pneumonia Neutropenia * Patient is failing at his current assisted living, [place]. * Patient will need physical therapy for possible return to [place] or will need SNF placement. * Currently not requiring oxygen and chest x-ray shows no improvement in his chest x-ray. * Patient is pancytopenic with significant neutropenia. Absolute neutrophils 880. * Inflammatory markers elevated including a D-dimer of 1.0, C-reactive protein of 14.9 which could be exacerbated from his renal cell carcinoma, Ferritin 437, * Patient has significant pain in his back and legs. Unsure if this is cancer related or not. Chronic medical problems: Hypertension, hypothyroidism, neuropathy, BPH, edema Plan * Admit to medical floor for failure to thrive * PT/OT consult * Monitor oxygen saturations * Pain management * FiO2 if oxygen saturations drop below 94%. * Dietary consult * clinical services specialist consult for discharge planning * VTE prophylaxis with Lovenox * CODE STATUS DNR/DNI - Mortality Measure Prognosis:: Poor
[2020-07-13] MEDS: Tamsulosin 0.4 MG Cap.ER PO SCH (20:56)
[2020-07-13] MEDS: Gabapentin 100 MG Cap PO SCH (20:56)
[2020-07-13] MEDS: Polyethylene Glycol 3350 Powder 17 GM Packet PO SCH (20:57)
[2020-07-14] MEDS: Morphine 2 MG/ML SYRINGE IVPUSH PRN ×4 (00:21→16:35)
[2020-07-14] MEDS: Acetaminophen 325 MG Tab PO PRN (05:20)
[2020-07-14] MEDS ORDERED: Levothyroxine 100 MCG Tab PO SCH (06:00)
--- NOTE | 2020-07-14 08:32 | PCM.PN ---
- General Info Date of Service: 07/14/20 Admission Dx/Problem (Free Text): Admission Diagnosis/Problem Admission Diagnosis/Problem Weakness Subjective Update: In to see Edson. He is lying in bed but looks uncomfortable. He is refusing need for any pain medications at this time. Lengthy discussion had about prognosis and overall plan of care. He is requiring oxygen at this point. This is likely due to a combination of his COVID-19 and pain medications. Patient has been refusing any further treatment for his cancer and affirms this, saying the physicians prior had said there is really nothing more they can do due to the complexity and significance of his neoplasm. We discussed possible COVID treatment and he again reports there is nothing he would like done. He states he is "ready to ." He reports he is Taoist and would like spiritual care consulted. We discussed the possibility of hospice care at discharge and he agrees this is something he would like to pursue. We discussed comfort care and the goal of making him comfortable and stopping all lab draws, etc. He agrees this is what he would like. We will keep oxygen on for now for comfort but he may decide to discontinue this in the future. Will stop lab draws, PT/OT, frequent vital signs, telemetry, architecture consultant consult, and review home medications. Added Ativan for anxiety PRN. Patient reports longstanding history of urinary retention and hematuria. Nursing noted patient had significant retention and multiple blood clots were noted during straight catheterization. Patient continues to have retention issues. Discussed mata catheter and this will be placed for comfort care. Will utilize [address] catheter incase bladder irrigation is warranted. Patient status changed to comfort care. Functional Status: Reports: Pain Controlled, Tolerating Diet, Ambulating, Urinat ing. Denies: New Symptoms - Review of Systems General: Reports: No Symptoms, Weakness, Fatigue, Malaise. Denies: Fever, Chills HEENT: Reports: No Symptoms. Denies: Headaches, Sore Throat Pulmonary: Reports: No Symptoms, Shortness of Breath, Pleuritic Chest Pain, Cough, Wheezing. Denies: Sputum Cardiovascular: Reports: Chest Pain, Dyspnea on Exertion. Denies: Palpitations Gastrointestinal: Reports: Abdominal Pain. Denies: Constipation, Diarrhea, Nausea, Vomiting Genitourinary: Reports: Frequency, Pain, Hematuria, Retention, Other (Blood clots noted ) Musculoskeletal: Reports: Back Pain, Leg Pain Skin: Reports: No Symptoms. Denies: Cyanosis Neurological: Reports: No Symptoms, Difficulty Walking, Weakness, Gait Disturbance. Denies: Confusion Psychiatric: Reports: No Symptoms - Patient Data Vitals - Most Recent: Last Vital Signs Temp 100.2 F 07/14/20 05:20 Pulse 80 07/14/20 05:11 Resp 20 07/14/20 05:11 BP 169/69 H 07/14/20 05:11 Pulse Ox 96 07/14/20 06:01 Weight - Most Recent: 160 lb 14.4 oz I&O - Last 24 Hours: Intake & Output 07/13/20 07/14/20 07/14/20 22:59 06:59 14:59 Intake Total 120 400 Output Total 100 Balance 20 400 Med Orders - Current: Current Medications Acetaminophen (Tylenol) 650 mg PO Q4H PRN PRN Reason: Pain (Mild 1-3)/fever Last Admin: 07/14/20 05:20 Dose: 650 mg Documented by: Hydrocodone Bitart/Acetaminophen ([place] 325-5 Mg) 2 tab PO Q4H PRN PRN Reason: Pain (moderate 4-6) Furosemide (Lasix) 20 mg PO DAILY [facility] Gabapentin (Neurontin) 100 mg PO BID [facility] Last Admin: 07/13/20 20:56 Dose: 100 mg Documented by: Dextrose/Lactated Ringer's (Dextrose 5%-Lactated Ringers) 1,000 mls @ 75 mls/hr IV ASDIRECTED [facility] Last Admin: 07/13/20 00:49 Dose: 75 mls/hr Documented by: Sodium Chloride (Normal Saline) 1,000 mls @ 999 mls/hr IV ONETIME [facility] Last Admin: 07/13/20 01:42 Dose: 999 mls/hr Documented by: Levothyroxine Sodium (Synthroid) 100 mcg PO ACBREAKFAST [facility] Last Admin: 07/14/20 05:03 Dose: 100 mcg Documented by: Morphine Sulfate (Morphine) 2 mg IVPUSH Q2H PRN PRN Reason: Pain (severe 7-10) Stop: 07/14/20 18:22 Last Admin: 07/14/20 05:04 Dose: 2 mg Documented by: Ondansetron HCl (Zofran) 4 mg IV Q4H PRN PRN Reason: Nausea/Vomiting Polyethylene Glycol (Miralax) 17 gm PO BEDTIME [facility] Last Admin: 07/13/20 20:57 Dose: 17 gm Documented by: Sodium Chloride (Saline Flush) 10 ml FLUSH ASDIRECTED PRN PRN Reason: Keep Vein Open Last Admin: 07/13/20 00:50 Dose: 10 ml Documented by: Tamsulosin HCl (Flomax) 0.4 mg PO BID [facility] Last Admin: 07/13/20 20:56 Dose: 0.4 mg Documented by: Tramadol HCl (Ultram) 50 mg PO QID PRN PRN Reason: Pain Last Admin: 07/13/20 20:05 Dose: 50 mg Documented by: Discontinued Medications Acetaminophen (Tylenol) 650 mg PO NOW STA Stop: 07/13/20 01:08 Last Admin: 07/13/20 01:21 Dose: 650 mg Documented by: Acetaminophen (Tylenol) 975 mg PO NOW ONE Stop: 07/13/20 14:02 Last Admin: 07/13/20 14:51 Dose: 975 mg Documented by: Morphine Sulfate (Morphine) 2 mg IVPUSH ONETIME ONE Stop: 07/13/20 03:07 Last Admin: 07/13/20 03:20 Dose: 2 mg Documented by: Morphine Sulfate (Morphine) 2 mg IVPUSH ONETIME ONE Stop: 07/13/20 05:15 Last Admin: 07/13/20 05:20 Dose: 2 mg Documented by: Tramadol HCl (Ultram) 50 mg PO ONETIME ONE Stop: 07/13/20 14:02 Last Admin: 07/13/20 14:52 Dose: 50 mg Documented by: - Exam Quality Assessment: Supplemental Oxygen, DVT Prophylaxis. No: Urine Catheter General: Alert, Oriented, Cooperative, Moderate Distress (Looks uncomfortable ) HEENT: Pupils Equal, Pupils Reactive, Mucous Membr. Moist/[place] Neck: Supple, Trachea Midline Lungs: Normal Respiratory Effort, Decreased Breath Sounds, Rhonchi Cardiovascular: Regular Rate, Regular Rhythm GI/Abdominal Exam: Soft, Distended, Guarding, Tender, Abnormal Bowel Sounds (Male) Exam: Deferred Extremities: Normal Inspection, Normal Range of Motion, Non-Tender, Normal Capillary Refill Skin: Warm, Dry, Intact Neurological: No New Focal Deficit Psy/Mental Status: Alert Sepsis Event Note - Evaluation Sepsis Screening Result: No Definite Risk - Focused Exam Vital Signs: Vital Signs Temp Temp Pulse Resp BP Pulse Ox Pulse Ox 07/14/20 06:01 96 07/14/20 05:20 100.2 F 07/14/20 05:11 100.2 F 80 20 169/69 H 97 07/14/20 04:00 98.7 F 72 20 167/69 H 96 07/14/20 00:00 97.7 F 65 19 137/70 97 07/13/20 21:55 97 07/13/20 20:57 Pulse Ox 07/14/20 06:01 07/14/20 05:20 07/14/20 05:11 07/14/20 04:00 07/14/20 00:00 07/13/20 21:55 07/13/20 20:57 93 L - Problem List & Annotations (1) Back pain SNOMED Code(s): 318983812 Code(s): M54.9 - DORSALGIA, UNSPECIFIED Status: Acute Priority: High Current Visit: Yes Qualifiers: Back pain location: low back pain Chronicity: acute Back pain laterality: unspecified Sciatica presence: without sciatica Qualified Code(s): M54.5 - Low back pain (2) Failure to thrive in adult SNOMED Code(s): 947005952 Code(s): R62.7 - ADULT FAILURE TO THRIVE Status: Acute Priority: High Current Visit: Yes (3) Generalized weakness SNOMED Code(s): 30437313 Code(s): R53.1 - WEAKNESS Status: Acute Priority: High Current Visit: Yes (4) Inability to walk SNOMED Code(s): 916613254 Code(s): R26.2 - DIFFICULTY IN WALKING, NOT ELSEWHERE CLASSIFIED Status: Acute Priority: High Current Visit: Yes (5) Leg pain, bilateral SNOMED Code(s): 66983093 Code(s): M79.604 - PAIN IN RIGHT LEG; M79.605 - PAIN IN LEFT LEG Status: Acute Priority: High Current Visit: Yes (6) Pneumonia due to COVID-19 virus SNOMED Code(s): 980428686945529320 Code(s): U07.1 - COVID-19; J12.89 - OTHER VIRAL PNEUMONIA Status: Acute Priority: High Current Visit: Yes (7) Renal cancer Status: Acute Priority: High Current Visit: Yes Qualifiers: Laterality: left Qualified Code(s): C64.2 - Malignant neoplasm of left kidney, except renal pelvis (8) COVID-19 virus infection SNOMED Code(s): 013726280 Code(s): U07.1 - COVID-19 Status: Acute Priority: High Current Visit: Yes (9) Hypomagnesemia SNOMED Code(s): 176305612 Code(s): E83.42 - HYPOMAGNESEMIA Status: Acute Priority: High Current Visit: Yes (10) Hyponatremia SNOMED Code(s): 35252333 Code(s): E87.1 - HYPO-OSMOLALITY AND HYPONATREMIA Status: Chronic Priority: Medium Current Visit: Yes (11) Urinary retention SNOMED Code(s): 324073963 Code(s): R33.9 - RETENTION OF URINE, UNSPECIFIED Status: Acute Priority: High Current Visit: Yes (12) Need for comfort care SNOMED Code(s): 275161170, 566762604 Code(s): RLM3241 - Status: Acute Current Visit: Yes (13) Hematuria SNOMED Code(s): 26092217 Code(s): R31.9 - HEMATURIA, UNSPECIFIED Status: Acute Priority: High Current Visit: Yes Qualifiers: Hematuria type: gross Qualified Code(s): R31.0 - Gross hematuria - Problem List Review Problem List Initiated/Reviewed/Updated: Yes - Plan Plan:: Assessment Failure to thrive Metastatic renal cell carcinomanot receiving treatment COVID-19 pneumonia Neutropenia Hypomagnesemia Hyponatremia Urinary retention Gross hematuria Need for comfort care * Patient is failing at his current assisted living, [facility]. * Patient will need physical therapy for possible return to [facility] or will need SNF placement. * Currently not requiring oxygen and chest x-ray shows no improvement in his chest x-ray. * Patient is pancytopenic with significant neutropenia. Absolute neutrophils 0.88-->1.43 * Inflammatory markers elevated including a D-dimer of 1.0, C-reactive protein of 14.9-->18.5 which could be exacerbated from his renal cell carcinoma, Ferritin 437, * Patient has significant pain in his back and legs. Unsure if this is cancer related or not. * WBC 1.41-->2.01 * Sodium 132 * Noted to be retaining urine via bladder scan with nursing. Straight cath performed with clots noted. Chronic medical problems: Hypertension, hypothyroidism, neuropathy, BPH, edema Plan * Admitted to medical floor for failure to thrive * Discontinue PT/OT consult * Pain management * PRN Ativan for anxiety * Insert 3-way catheter for comfort care * Stop IV fluids * Airborne/contact precautions (continue airborne/contact 2/ COVID-19 until 07/17/20) * O2 as needed for comfort * Cancel dietary consult * client services coordinator consult for discharge planning * Hospice consultation * Discontinue AM labs * BID Vital signs * Discontinue VTE prophylaxis for comfort care * CODE STATUS DNR/DNI/Comfort care - Changed 07/14/20 after discussion with patient.
[2020-07-14] MEDS ORDERED: Furosemide 20 MG Tab PO SCH (09:00)
[2020-07-14] MEDS: Gabapentin 100 MG Cap PO SCH ×2 (09:04→23:45)
[2020-07-14] MEDS: Tamsulosin 0.4 MG Cap.ER PO SCH ×2 (09:04→23:45)
[2020-07-14] MEDS ORDERED: Enoxaparin 40 MG/0.4 ML Syringe SUBCUT SCH (11:00)
[2020-07-14] MEDS: Ondansetron 4 MG/2 ML SDV IV PRN ×2 (11:55→16:34)
[2020-07-14] MEDS: Acetaminophen/HYDROcodone 325-5 MG Tab PO PRN (11:57)
[2020-07-14] MEDS ORDERED: Magnesium Sulfate/Water 2 GM/50 ML BAG IV ONE (15:00)
[2020-07-14] MEDS: LORazepam 2 MG/ML SDV IVPUSH PRN (23:40)
[2020-07-14] MEDS: Polyethylene Glycol 3350 Powder 17 GM Packet PO SCH (23:45)
[2020-07-15] MEDS: Ondansetron 4 MG/2 ML SDV IV PRN (03:22)
[2020-07-15] MEDS: traMADol 50 MG Tab PO PRN (03:22)
--- NOTE | 2020-07-15 07:57 | PCM.PN ---
- General Info Date of Service: 07/15/20 Admission Dx/Problem (Free Text): Admission Diagnosis/Problem Admission Diagnosis/Problem Weakness Functional Status: Reports: Pain Controlled, Urinating. Denies: Tolerating Diet, Ambulating, New Symptoms - Review of Systems General: Reports: Weakness, Fatigue. Denies: Fever, Chills HEENT: Denies: Headaches Pulmonary: Reports: Shortness of Breath, Cough. Denies: Wheezing Cardiovascular: Reports: Dyspnea on Exertion. Denies: Chest Pain Gastrointestinal: Reports: Abdominal Pain. Denies: Constipation, Diarrhea, Nausea, Vomiting Genitourinary: Reports: Retention. Denies: Pain Musculoskeletal: Reports: Back Pain, Leg Pain Neurological: Reports: Difficulty Walking, Gait Disturbance. Denies: Confusion - Patient Data Vitals - Most Recent: Last Vital Signs Temp 98.5 F 07/14/20 08:00 Pulse 81 07/14/20 15:00 Resp 18 07/14/20 15:00 BP 149/75 H 07/14/20 15:00 Pulse Ox 96 07/14/20 15:00 Weight - Most Recent: 160 lb 14.399 oz I&O - Last 24 Hours: Intake & Output 07/14/20 07/15/20 07/15/20 22:59 06:59 14:59 Intake Total 300 Output Total 300 490 Balance -300 -190 Lab Results Last 24 Hours: Laboratory Results - last 24 hr 07/14/20 07/14/20 Range/Units 10:28 10:28 WBC 2.01 L* (4.23-9.07) K/mm3 RBC 4.52 L (4.63-6.08) M/mm3 Hgb 11.3 L (13.7-17.5) gm/dl Hct 36.6 L (40.1-51.0) % MCV 81.0 (79.0-92.2) fl MCH 25.0 L (25.7-32.2) pg MCHC 30.9 L (32.2-35.5) g/dl RDW Std Deviation 62.1 H (35.1-43.9) fL Plt Count 125 L (163-337) K/mm3 MPV 9.1 L (9.4-12.3) fl Neut % (Auto) 71.1 H (34.0-67.9) % Lymph % (Auto) 15.4 L (21.8-53.1) % Blaine % (Auto) 10.0 (5.3-12.2) % Eos % (Auto) 0 L (0.8-7.0) Baso % (Auto) 0.5 (0.1-1.2) % Neut # (Auto) 1.43 L (1.78-5.38) K/mm3 Lymph # (Auto) 0.31 L (1.32-3.57) K/mm3 Blaine # (Auto) 0.20 L (0.30-0.82) K/mm3 Eos # (Auto) 0.00 L (0.04-0.54) K/mm3 Baso # (Auto) 0.01 (0.01-0.08) K/mm3 Manual Slide Review Abnormal smear Sodium 132 L (136-145) mEq/L Potassium 4.0 (3.5-5.1) mEq/L Chloride 96 L (98-107) mEq/L Carbon Dioxide 26 (21-32) mEq/L Anion Gap 14.0 (5-15) BUN 24 H (7-18) mg/dL Creatinine 1.2 (0.7-1.3) mg/dL Est Cr Clr Drug Dosing 41.17 mL/min Estimated GFR (MDRD) 57 (>60) mL/min BUN/Creatinine Ratio 20.0 H (14-18) Glucose 94 (83-115) mg/dL Calcium 8.9 (8.5-10.1) mg/dL Magnesium 1.7 L (1.8-2.4) mg/dl C-Reactive Protein 18.5 H* (<1.0) mg/dL Med Orders - Current: Current Medications Acetaminophen (Tylenol) 650 mg PO Q4H PRN PRN Reason: Pain (Mild 1-3)/fever Last Admin: 07/14/20 05:20 Dose: 650 mg Documented by: Hydrocodone Bitart/Acetaminophen ([place] 325-5 Mg) 2 tab PO Q4H PRN PRN Reason: Pain (moderate 4-6) Last Admin: 07/14/20 11:57 Dose: 2 tab Documented by: Gabapentin (Neurontin) 100 mg PO BID [facility] Last Admin: 07/14/20 23:45 Dose: Not Given Documented by: Lorazepam (Ativan) 0.5 mg PO Q8H PRN PRN Reason: Anxiety Lorazepam (Ativan) 0.5 mg IVPUSH Q4H PRN PRN Reason: Other Last Admin: 07/14/20 23:40 Dose: 0.5 mg Documented by: Ondansetron HCl (Zofran) 4 mg IV Q4H PRN PRN Reason: Nausea/Vomiting Last Admin: 07/15/20 03:22 Dose: 4 mg Documented by: Polyethylene Glycol (Miralax) 17 gm PO BEDTIME [facility] Last Admin: 07/14/20 23:45 Dose: Not Given Documented by: Sodium Chloride (Saline Flush) 10 ml FLUSH ASDIRECTED PRN PRN Reason: Keep Vein Open Last Admin: 07/13/20 00:50 Dose: 10 ml Documented by: Tamsulosin HCl (Flomax) 0.4 mg PO BID [facility] Last Admin: 07/14/20 23:45 Dose: Not Given Documented by: Tramadol HCl (Ultram) 50 mg PO QID PRN PRN Reason: Pain Last Admin: 07/15/20 03:22 Dose: 50 mg Documented by: Discontinued Medications Acetaminophen (Tylenol) 650 mg PO NOW STA Stop: 07/13/20 01:08 Last Admin: 07/13/20 01:21 Dose: 650 mg Documented by: Acetaminophen (Tylenol) 975 mg PO NOW ONE Stop: 07/13/20 14:02 Last Admin: 07/13/20 14:51 Dose: 975 mg Documented by: Enoxaparin Sodium (Lovenox) 40 mg SUBCUT DAILY [facility] Last Admin: 07/14/20 11:48 Dose: 40 mg Documented by: Furosemide (Lasix) 20 mg PO DAILY [facility] Last Admin: 07/14/20 09:04 Dose: 20 mg Documented by: Dextrose/Lactated Ringer's (Dextrose 5%-Lactated Ringers) 1,000 mls @ 75 mls/hr IV ASDIRECTED [facility] Last Admin: 07/13/20 00:49 Dose: 75 mls/hr Documented by: Sodium Chloride (Normal Saline) 1,000 mls @ 999 mls/hr IV ONETIME [facility] Last Admin: 07/13/20 01:42 Dose: 999 mls/hr Documented by: Magnesium Sulfate (Magnesium Sulfate In Water Premix) 2 gm in 50 mls @ 25 mls/hr IV ONETIME ONE Stop: 07/14/20 16:59 Levothyroxine Sodium (Synthroid) 100 mcg PO ACBREAKFAST [facility] Last Admin: 07/14/20 05:03 Dose: 100 mcg Documented by: Morphine Sulfate (Morphine) 2 mg IVPUSH ONETIME ONE Stop: 07/13/20 03:07 Last Admin: 07/13/20 03:20 Dose: 2 mg Documented by: Morphine Sulfate (Morphine) 2 mg IVPUSH ONETIME ONE Stop: 07/13/20 05:15 Last Admin: 07/13/20 05:20 Dose: 2 mg Documented by: Morphine Sulfate (Morphine) 2 mg IVPUSH Q2H PRN PRN Reason: Pain (severe 7-10) Stop: 07/14/20 18:22 Last Admin: 07/14/20 16:35 Dose: 2 mg Documented by: Tramadol HCl (Ultram) 50 mg PO ONETIME ONE Stop: 07/13/20 14:02 Last Admin: 07/13/20 14:52 Dose: 50 mg Documented by: - Exam Quality Assessment: Supplemental Oxygen, Urine Catheter. No: DVT Prophylaxis General: Oriented, Cooperative, Lethargic HEENT: Pupils Equal, Pupils Reactive Neck: Supple, Trachea Midline Lungs: Decreased Breath Sounds, Rales. No: Normal Respiratory Effort Cardiovascular: Regular Rate, Regular Rhythm GI/Abdominal Exam: Soft, Tender, Abnormal Bowel Sounds (Male) Exam: Deferred Extremities: Normal Inspection, Normal Range of Motion, Non-Tender, No Pedal Edema, Normal Capillary Refill Skin: Warm, Dry, Intact Neurological: No New Focal Deficit Sepsis Event Note - Evaluation Sepsis Screening Result: No Definite Risk - Problem List & Annotations (1) Back pain SNOMED Code(s): 787522154 Code(s): M54.9 - DORSALGIA, UNSPECIFIED Status: Acute Priority: High Current Visit: Yes Qualifiers: Back pain location: low back pain Chronicity: acute Back pain laterality: unspecified Sciatica presence: without sciatica Qualified Code(s): M54.5 - Low back pain (2) Failure to thrive in adult SNOMED Code(s): 098218090 Code(s): R62.7 - ADULT FAILURE TO THRIVE Status: Acute Priority: High Current Visit: Yes (3) Generalized weakness SNOMED Code(s): 30614523 Code(s): R53.1 - WEAKNESS Status: Acute Priority: High Current Visit: Yes (4) Inability to walk SNOMED Code(s): 413687939 Code(s): R26.2 - DIFFICULTY IN WALKING, NOT ELSEWHERE CLASSIFIED Status: Acute Priority: High Current Visit: Yes (5) Leg pain, bilateral SNOMED Code(s): 13761657 Code(s): M79.604 - PAIN IN RIGHT LEG; M79.605 - PAIN IN LEFT LEG Status: A cute Priority: High Current Visit: Yes (6) Pneumonia due to COVID-19 virus SNOMED Code(s): 210751249361356336 Code(s): U07.1 - COVID-19; J12.89 - OTHER VIRAL PNEUMONIA Status: Acute Priority: High Current Visit: Yes (7) Renal cancer Status: Acute Priority: High Current Visit: Yes Qualifiers: Laterality: left Qualified Code(s): C64.2 - Malignant neoplasm of left kidney, except renal pelvis (8) COVID-19 virus infection SNOMED Code(s): 213744425 Code(s): U07.1 - COVID-19 Status: Acute Priority: High Current Visit: Yes (9) Hypomagnesemia SNOMED Code(s): 758115750 Code(s): E83.42 - HYPOMAGNESEMIA Status: Acute Priority: High Current Visit: Yes (10) Hyponatremia SNOMED Code(s): 59239801 Code(s): E87.1 - HYPO-OSMOLALITY AND HYPONATREMIA Status: Chronic Priority: Medium Current Visit: Yes (11) Urinary retention SNOMED Code(s): 980580281 Code(s): R33.9 - RETENTION OF URINE, UNSPECIFIED Status: Acute Priority: High Current Visit: Yes (12) Need for comfort care SNOMED Code(s): 340584299, 992568753 Code(s): FFS4891 - Status: Acute Current Visit: Yes (13) Hematuria SNOMED Code(s): 92063659 Code(s): R31.9 - HEMATURIA, UNSPECIFIED Status: Acute Priority: High Current Visit: Yes Qualifiers: Hematuria type: gross Qualified Code(s): R31.0 - Gross hematuria - Problem List Review Problem List Initiated/Reviewed/Updated: Yes - My Orders Last 24 Hours: My Active Orders 07/14/20 09:46 Isolation [COMM] Routine 07/14/20 09:47 Consult to Case Management/[employer] [CONS] Routine 07/14/20 15:29 Resuscitation Status Routine 07/14/20 15:31 Consult to Hospice [CONS] Routine 07/14/20 15:32 Consult to Spiritual Care [CONS] Routine 07/14/20 15:33 Urinary Catheter Assessment [RC] 2000,0000,0400,0800,1200 07/14/20 15:34 LORazepam [Ativan] 0.5 mg PO Q8H PRN 07/14/20 15:35 Patient Status [ADT] Routine 07/14/20 15:45 Insert Cancino Catheter [Insert Urinary Catheter] [OM.PC] Q24H - Plan Plan:: Assessment Failure to thrive Metastatic renal cell carcinomanot receiving treatment COVID-19 pneumonia Neutropenia Hypomagnesemia Hyponatremia Urinary retention Gross hematuria Need for comfort care * Patient is failing at his current assisted living, [facility]. * Currently on 1L O2 * Patient is pancytopenic with significant neutropenia. Absolute neutrophils 0.88-->1.43 * Inflammatory markers elevated including a D-dimer of 1.0, C-reactive protein of 14.9-->18.5 which could be exacerbated from his renal cell carcinoma, Ferritin 437, * Patient has significant pain in his back and legs. Unsure if this is cancer related or not. * WBC 1.41-->2.01 * Sodium 132 * Cancino catheter placed for comfort care Chronic medical problems: Hypertension, hypothyroidism, neuropathy, BPH, edema Plan * Admitted to medical floor for failure to thrive * Discontinue PT/OT consult * Comfort care pain management * PRN Ativan for anxiety * Insert 3-way catheter for comfort care * Airborne/contact precautions (continue airborne/contact 2/ COVID-19 until 07/17/20) * O2 as needed for comfort * professional services specialist consult for discharge planning * Hospice consultation * Discontinue AM labs * BID Vital signs * Discontinue VTE prophylaxis for comfort care * CODE STATUS DNR/DNI/Comfort care - Changed 07/14/20 after discussion with patient. * Discharge on comfort care pending placement
[2020-07-15] MEDS: Tamsulosin 0.4 MG Cap.ER PO SCH ×2 (09:13→20:51)
[2020-07-15] MEDS: Gabapentin 100 MG Cap PO SCH ×2 (09:13→20:51)
[2020-07-15] MEDS: Acetaminophen/HYDROcodone 325-5 MG Tab PO PRN (10:10)
[2020-07-15] MEDS: Morphine 2 MG/ML SYRINGE IVPUSH PRN ×5 (10:11→22:32)
[2020-07-15] MEDS: Polyethylene Glycol 3350 Powder 17 GM Packet PO SCH (11:09)
[2020-07-16] MEDS: Morphine 2 MG/ML SYRINGE IVPUSH PRN ×10 (01:56→23:34)
[2020-07-16] MEDS: Acetaminophen/HYDROcodone 325-5 MG Tab PO PRN (06:11)
--- NOTE | 2020-07-16 07:41 | PCM.PN ---
- General Info Date of Service: 07/16/20 Admission Dx/Problem (Free Text): Admission Diagnosis/Problem Admission Diagnosis/Problem Weakness Subjective Update: In to see Edson. He is resting on the bed and in and out of sleeping. Pain is controlled. No patient or nursing concerns. Per social work patient has been accepted to [facility], however they are unable to accept him until Sunday. He will remain here on comfort care through the weekend. Functional Status: Reports: Pain Controlled, Tolerating Diet (minimal intake ), Urinating (mata in place ). Denies: Ambulating, New Symptoms - Review of Systems General: Reports: Weakness, Fatigue, Malaise. Denies: Fever, Chills HEENT: Reports: No Symptoms. Denies: Headaches, Sore Throat Pulmonary: Reports: No Symptoms, Shortness of Breath, Pleuritic Chest Pain, Cough. Denies: Sputum, Wheezing Cardiovascular: Reports: No Symptoms, Dyspnea on Exertion. Denies: Chest Pain, Palpitations Gastrointestinal: Reports: Abdominal Pain. Denies: Constipation, Diarrhea, Nausea, Vomiting Genitourinary: Reports: Retention. Denies: Pain Musculoskeletal: Reports: No Symptoms Skin: Reports: No Symptoms. Denies: Cyanosis Neurological: Denies: Confusion Psychiatric: Reports: No Symptoms - Patient Data Vitals - Most Recent: Last Vital Signs Temp 99 F 07/15/20 20:46 Pulse 88 07/15/20 20:46 Resp 20 07/15/20 20:46 BP 148/59 H 07/15/20 20:46 Pulse Ox 90 L 07/15/20 20:46 Weight - Most Recent: 160 lb 2 oz I&O - Last 24 Hours: Intake & Output 07/15/20 07/16/20 07/16/20 22:59 06:59 14:59 Intake Total 200 400 Output Total 400 300 Balance -200 100 Med Orders - Current: Current Medications Acetaminophen (Tylenol) 650 mg PO Q4H PRN PRN Reason: Pain (Mild 1-3)/fever Last Admin: 07/14/20 05:20 Dose: 650 mg Documented by: Hydrocodone Bitart/Acetaminophen ([place] 325-5 Mg) 2 tab PO Q4H PRN PRN Reason: Pain (moderate 4-6) Last Admin: 07/16/20 06:11 Dose: 2 tab Documented by: Gabapentin (Neurontin) 100 mg PO BID [facility] Last Admin: 07/15/20 20:51 Dose: Not Given Documented by: Lorazepam (Ativan) 0.5 mg PO Q8H PRN PRN Reason: Anxiety Lorazepam (Ativan) 0.5 mg IVPUSH Q4H PRN PRN Reason: Other Last Admin: 07/14/20 23:40 Dose: 0.5 mg Documented by: Morphine Sulfate (Morphine) 2 mg IVPUSH Q2H PRN PRN Reason: Breakthrough Pain Last Admin: 07/16/20 06:03 Dose: 2 mg Documented by: Ondansetron HCl (Zofran) 4 mg IV Q4H PRN PRN Reason: Nausea/Vomiting Last Admin: 07/15/20 03:22 Dose: 4 mg Documented by: Polyethylene Glycol (Miralax) 17 gm PO DAILY [facility] Last Admin: 07/15/20 11:09 Dose: 17 gm Documented by: Sodium Chloride (Saline Flush) 10 ml FLUSH ASDIRECTED PRN PRN Reason: Keep Vein Open Last Admin: 07/13/20 00:50 Dose: 10 ml Documented by: Tamsulosin HCl (Flomax) 0.4 mg PO BID [facility] Last Admin: 07/15/20 20:51 Dose: Not Given Documented by: Tramadol HCl (Ultram) 50 mg PO QID PRN PRN Reason: Pain Last Admin: 07/15/20 03:22 Dose: 50 mg Documented by: Discontinued Medications Acetaminophen (Tylenol) 650 mg PO NOW STA Stop: 07/13/20 01:08 Last Admin: 07/13/20 01:21 Dose: 650 mg Documented by: Acetaminophen (Tylenol) 975 mg PO NOW ONE Stop: 07/13/20 14:02 Last Admin: 07/13/20 14:51 Dose: 975 mg Documented by: Enoxaparin Sodium (Lovenox) 40 mg SUBCUT DAILY [facility] Last Admin: 07/14/20 11:48 Dose: 40 mg Documented by: Furosemide (Lasix) 20 mg PO DAILY [facility] Last Admin: 07/14/20 09:04 Dose: 20 mg Documented by: Dextrose/Lactated Ringer's (Dextrose 5%-Lactated Ringers) 1,000 mls @ 75 mls/hr IV ASDIRECTED [facility] Last Admin: 07/13/20 00:49 Dose: 75 mls/hr Documented by: Sodium Chloride (Normal Saline) 1,000 mls @ 999 mls/hr IV ONETIME [facility] Last Admin: 07/13/20 01:42 Dose: 999 mls/hr Documented by: Magnesium Sulfate (Magnesium Sulfate In Water Premix) 2 gm in 50 mls @ 25 mls/hr IV ONETIME ONE Stop: 07/14/20 16:59 Last Admin: 07/16/20 07:34 Dose: Not Given Documented by: Levothyroxine Sodium (Synthroid) 100 mcg PO ACBREAKFAST [facility] Last Admin: 07/14/20 05:03 Dose: 100 mcg Documented by: Morphine Sulfate (Morphine) 2 mg IVPUSH ONETIME ONE Stop: 07/13/20 03:07 Last Admin: 07/13/20 03:20 Dose: 2 mg Documented by: Morphine Sulfate (Morphine) 2 mg IVPUSH ONETIME ONE Stop: 07/13/20 05:15 Last Admin: 07/13/20 05:20 Dose: 2 mg Documented by: Morphine Sulfate (Morphine) 2 mg IVPUSH Q2H PRN PRN Reason: Pain (severe 7-10) Stop: 07/14/20 18:22 Last Admin: 07/14/20 16:35 Dose: 2 mg Documented by: Polyethylene Glycol (Miralax) 17 gm PO BEDTIME [facility] Last Admin: 07/14/20 23:45 Dose: Not Given Documented by: Tramadol HCl (Ultram) 50 mg PO ONETIME ONE Stop: 07/13/20 14:02 Last Admin: 07/13/20 14:52 Dose: 50 mg Documented by: - Exam Quality Assessment: Supplemental Oxygen, Urine Catheter. No: DVT Prophylaxis (comfort care ) General: Sedated (comfort care pain medications ), Lethargic Neck: Supple Lungs: Normal Respiratory Effort, Decreased Breath Sounds, Rhonchi Cardiovascular: Regular Rate, Regular Rhythm GI/Abdominal Exam: Soft, Abnormal Bowel Sounds (Male) Exam: Deferred Extremities: Normal Inspection, No Pedal Edema Skin: Warm, Dry, Intact Neurological: No New Focal Deficit Sepsis Event Note - Evaluation Sepsis Screening Result: No Definite Risk - Focused Exam Vital Signs: Vital Signs Temp Pulse Resp BP Pulse Ox 07/15/20 20:46 99 F 88 20 148/59 H 90 L - Problem List & Annotations (1) Back pain SNOMED Code(s): 746126401 Code(s): M54.9 - DORSALGIA, UNSPECIFIED Status: Acute Priority: High Current Visit: Yes Qualifiers: Back pain location: low back pain Chronicity: acute Back pain laterality: unspecified Sciatica presence: without sciatica Qualified Code(s): M54.5 - Low back pain (2) Failure to thrive in adult SNOMED Code(s): 868687316 Code(s): R62.7 - ADULT FAILURE TO THRIVE Status: Acute Priority: High Current Visit: Yes (3) Generalized weakness SNOMED Code(s): 64047081 Code(s): R53.1 - WEAKNESS Status: Acute Priority: High Current Visit: Yes (4) Inability to walk SNOMED Code(s): 652491437 Code(s): R26.2 - DIFFICULTY IN WALKING, NOT ELSEWHERE CLASSIFIED Status: Acute Priority: High Current Visit: Yes (5) Leg pain, bilateral SNOMED Code(s): 39086691 Code(s): M79.604 - PAIN IN RIGHT LEG; M79.605 - PAIN IN LEFT LEG Status: Acute Priority: High Current Visit: Yes (6) Pneumonia due to COVID-19 virus SNOMED Code(s): 593627295046153025 Code(s): U07.1 - COVID-19; J12.89 - OTHER VIRAL PNEUMONIA Status: Acute Priority: High Current Visit: Yes (7) Renal cancer Status: Acute Priority: High Current Visit: Yes Qualifiers: Laterality: left Qualified Code(s): C64.2 - Malignant neoplasm of left kidney, except renal pelvis (8) COVID-19 virus infection SNOMED Code(s): 847266416 Code(s): U07.1 - COVID-19 Status: Acute Priority: High Current Visit: Yes (9) Hypomagnesemia SNOMED Code(s): 983185341 Code(s): E83.42 - HYPOMAGNESEMIA Status: Acute Priority: High Current Visit: Yes (10) Hyponatremia SNOMED Code(s): 97273759 Code(s): E87.1 - HYPO-OSMOLALITY AND HYPONATREMIA Status: Chronic Priori ty: Medium Current Visit: Yes (11) Urinary retention SNOMED Code(s): 228842035 Code(s): R33.9 - RETENTION OF URINE, UNSPECIFIED Status: Acute Priority: High Current Visit: Yes (12) Need for comfort care SNOMED Code(s): 416288275, 715245021 Code(s): VXK7890 - Status: Acute Current Visit: Yes (13) Hematuria SNOMED Code(s): 01463209 Code(s): R31.9 - HEMATURIA, UNSPECIFIED Status: Acute Priority: High Current Visit: Yes Qualifiers: Hematuria type: gross Qualified Code(s): R31.0 - Gross hematuria - Problem List Review Problem List Initiated/Reviewed/Updated: Yes - My Orders Last 24 Hours: My Active Orders 07/15/20 09:53 Morphine 2 mg IVPUSH Q2H PRN - Plan Plan:: Assessment Failure to thrive Metastatic renal cell carcinomanot receiving treatment COVID-19 pneumonia Neutropenia Hypomagnesemia Hyponatremia Urinary retention Gross hematuria Need for comfort care * Patient is failing at his current assisted living, [facility]. * Currently on 1L O2 * Patient is pancytopenic with significant neutropenia. Absolute neutrophils 0.88-->1.43 * Inflammatory markers elevated including a D-dimer of 1.0, C-reactive protein of 14.9-->18.5 which could be exacerbated from his renal cell carcinoma, Ferritin 437, * Patient has significant pain in his back and legs. Unsure if this is cancer related or not. * WBC 1.41-->2.01 * Sodium 132 * Mata catheter placed for comfort care Chronic medical problems: Hypertension, hypothyroidism, neuropathy, BPH, edema Plan * Admitted to medical floor for failure to thrive * Discontinue PT/OT consult * Comfort care pain management * PRN Ativan for anxiety * Insert 3-way catheter for comfort care * Airborne/contact precautions (continue airborne/contact 2/2 COVID-19 until 07/17/20) * O2 as needed for comfort * vice president client services consult for discharge planning * Hospice consultation * Discontinue AM labs * BID Vital signs * Discontinue VTE prophylaxis for comfort care * CODE STATUS DNR/DNI/Comfort care - Changed 07/14/20 after discussion with patient. * Discharge on comfort care pending placement - likely Sunday to as they will not accept until then
[2020-07-16] MEDS: Tamsulosin 0.4 MG Cap.ER PO SCH ×3 (07:51→22:21)
[2020-07-16] MEDS: LORazepam 0.5 MG Tab PO PRN ×2 (07:51→16:05)
[2020-07-16] MEDS: Gabapentin 100 MG Cap PO SCH ×3 (07:52→22:22)
[2020-07-16] MEDS: Polyethylene Glycol 3350 Powder 17 GM Packet PO SCH ×2 (07:52→08:20)
[2020-07-17] MEDS: Morphine 2 MG/ML SYRINGE IVPUSH PRN ×10 (03:22→22:46)
[2020-07-17] MEDS: LORazepam 2 MG/ML SDV IVPUSH PRN ×3 (08:07→17:14)
[2020-07-17] MEDS: Polyethylene Glycol 3350 Powder 17 GM Packet PO SCH (08:08)
[2020-07-17] MEDS: Gabapentin 100 MG Cap PO SCH (08:08)
[2020-07-17] MEDS: Tamsulosin 0.4 MG Cap.ER PO SCH (09:17)
--- NOTE | 2020-07-17 20:02 | PCM.PN ---
- General Info Date of Service: 07/17/20 Admission Dx/Problem (Free Text): Admission Diagnosis/Problem Admission Diagnosis/Problem Weakness Subjective Update: Patient is resting comfortably. He is noncommunicative. Functional Status: Reports: Pain Controlled - Patient Data Vitals - Most Recent: Last Vital Signs Temp 97.1 F 07/17/20 08:09 Pulse 96 07/17/20 08:09 Resp 20 07/17/20 08:09 BP 154/64 H 07/17/20 08:09 Pulse Ox 87 L 07/17/20 12:06 Weight - Most Recent: 154 lb 5.177 oz I&O - Last 24 Hours: Intake & Output 07/17/20 07/17/20 07/17/20 06:59 14:59 22:59 Output Total 530 200 Balance -530 -200 Med Orders - Current: Current Medications Lorazepam (Ativan) 0.5 mg IVPUSH Q4H PRN PRN Reason: Other Last Admin: 07/17/20 17:14 Dose: 0.5 mg Documented by: Morphine Sulfate (Morphine) 2 mg IVPUSH Q2H PRN PRN Reason: Breakthrough Pain Last Admin: 07/17/20 18:01 Dose: 2 mg Documented by: Ondansetron HCl (Zofran) 4 mg IV Q4H PRN PRN Reason: Nausea/Vomiting Last Admin: 07/15/20 03:22 Dose: 4 mg Documented by: Sodium Chloride (Saline Flush) 10 ml FLUSH ASDIRECTED PRN PRN Reason: Keep Vein Open Last Admin: 07/13/20 00:50 Dose: 10 ml Documented by: Discontinued Medications Acetaminophen (Tylenol) 650 mg PO NOW STA Stop: 07/13/20 01:08 Last Admin: 07/13/20 01:21 Dose: 650 mg Documented by: Acetaminophen (Tylenol) 975 mg PO NOW ONE Stop: 07/13/20 14:02 Last Admin: 07/13/20 14:51 Dose: 975 mg Documented by: Acetaminophen (Tylenol) 650 mg PO Q4H PRN PRN Reason: Pain (Mild 1-3)/fever Last Admin: 07/14/20 05:20 Dose: 650 mg Documented by: Hydrocodone Bitart/Acetaminophen ([place] 325-5 Mg) 2 tab PO Q4H PRN PRN Reason: Pain (moderate 4-6) Last Admin: 07/16/20 06:11 Dose: 2 tab Documented by: Enoxaparin Sodium (Lovenox) 40 mg SUBCUT DAILY [facility] Last Admin: 07/14/20 11:48 Dose: 40 mg Documented by: Furosemide (Lasix) 20 mg PO DAILY [facility] Last Admin: 07/14/20 09:04 Dose: 20 mg Documented by: Gabapentin (Neurontin) 100 mg PO BID [facility] Last Admin: 07/17/20 08:08 Dose: Not Given Documented by: Dextrose/Lactated Ringer's (Dextrose 5%-Lactated Ringers) 1,000 mls @ 75 mls/hr IV ASDIRECTED [facility] Last Admin: 07/13/20 00:49 Dose: 75 mls/hr Documented by: Sodium Chloride (Normal Saline) 1,000 mls @ 999 mls/hr IV ONETIME [facility] Last Admin: 07/13/20 01:42 Dose: 999 mls/hr Documented by: Magnesium Sulfate (Magnesium Sulfate In Water Premix) 2 gm in 50 mls @ 25 mls/hr IV ONETIME ONE Stop: 07/14/20 16:59 Last Admin: 07/16/20 07:34 Dose: Not Given Documented by: Levothyroxine Sodium (Synthroid) 100 mcg PO ACBREAKFAST [facility] Last Admin: 07/14/20 05:03 Dose: 100 mcg Documented by: Lorazepam (Ativan) 0.5 mg PO Q8H PRN PRN Reason: Anxiety Last Admin: 07/16/20 16:05 Dose: 0.5 mg Documented by: Morphine Sulfate (Morphine) 2 mg IVPUSH ONETIME ONE Stop: 07/13/20 03:07 Last Admin: 07/13/20 03:20 Dose: 2 mg Documented by: Morphine Sulfate (Morphine) 2 mg IVPUSH ONETIME ONE Stop: 07/13/20 05:15 Last Admin: 07/13/20 05:20 Dose: 2 mg Documented by: Morphine Sulfate (Morphine) 2 mg IVPUSH Q2H PRN PRN Reason: Pain (severe 7-10) Stop: 07/14/20 18:22 Last Admin: 07/14/20 16:35 Dose: 2 mg Documented by: Polyethylene Glycol (Miralax) 17 gm PO BEDTIME [facility] Last Admin: 07/14/20 23:45 Dose: Not Given Documented by: Polyethylene Glycol (Miralax) 17 gm PO DAILY [facility] Last Admin: 07/17/20 08:08 Dose: Not Given Documented by: Tamsulosin HCl (Flomax) 0.4 mg PO BID [facility] Last Admin: 07/17/20 09:17 Dose: Not Given Documented by: Tramadol HCl (Ultram) 50 mg PO ONETIME ONE Stop: 07/13/20 14:02 Last Admin: 07/13/20 14:52 Dose: 50 mg Documented by: Tramadol HCl (Ultram) 50 mg PO QID PRN PRN Reason: Pain Last Admin: 07/15/20 03:22 Dose: 50 mg Documented by: - Exam Quality Assessment: Supplemental Oxygen General: Obtunded Lungs: Clear to Auscultation, Normal Respiratory Effort Cardiovascular: Regular Rate, Regular Rhythm GI/Abdominal Exam: Normal Bowel Sounds, Soft Sepsis Event Note - Evaluation Sepsis Screening Result: No Definite Risk - Focused Exam Vital Signs: Vital Signs Temp Pulse Resp BP Pulse Ox Pulse Ox 07/17/20 12:06 87 L 07/17/20 08:09 97.1 F 96 20 154/64 H 90 L - Problem List & Annotations (1) Failure to thrive in adult SNOMED Code(s): 633202057 Code(s): R62.7 - ADULT FAILURE TO THRIVE Status: Acute Priority: High Current Visit: Yes (2) Leg pain, bilateral SNOMED Code(s): 77194218 Code(s): M79.604 - PAIN IN RIGHT LEG; M79.605 - PAIN IN LEFT LEG Status: Acute Priority: High Current Visit: Yes (3) Back pain SNOMED Code(s): 783920939 Code(s): M54.9 - DORSALGIA, UNSPECIFIED Status: Acute Priority: High Current Visit: Yes Qualifiers: Back pain location: low back pain Chronicity: acute Back pain laterality: unspecified Sciatica presence: without sciatica Qualified Code(s): M54.5 - Low back pain (4) Generalized weakness SNOMED Code(s): 93989620 Code(s): R53.1 - WEAKNESS Status: Acute Priority: High Current Visit: Yes (5) Pneumonia due to COVID-19 virus SNOMED Code(s): 700577857703426218 Code(s): U07.1 - COVID-19; J12.89 - OTHER VIRAL PNEUMONIA Status: Acute Priority: High Current Visit: Yes (6) Renal cancer Status: Acute Priority: High Current Visit: Yes Qualifiers: Laterality: left Qualified Code(s): C64.2 - Malignant neoplasm of left kidney, except renal pelvis (7) COVID-19 virus infection SNOMED Code(s): 778388028 Code(s): U07.1 - COVID-19 Status: Acute Priority: High Current Visit: Yes - Problem List Review Problem List Initiated/Reviewed/Updated: Yes - My Orders Last 24 Hours: My Active Orders 07/17/20 10:50 Bedrest [RC] ASDIRECTED - Plan Plan:: Assessment Failure to thrive Metastatic renal cell carcinomanot receiving treatment COVID-19 pneumonia Neutropenia Hypomagnesemia Hyponatremia Urinary retention Gross hematuria Comfort care only * Patient is on comfort measures. No labs and currently vital signs twice a day which will be changed to no vital signs. * Goal is to keep him comfortable. Chronic medical problems: Hypertension, hypothyroidism, neuropathy, BPH, edema Plan * Admitted to medical floor for failure to thrive * Discontinue PT/OT consult * Comfort care pain management * PRN Ativan for anxiety * Insert 3-way catheter for comfort care secondary to gross hematuria and comfort measures * Airborne/contact precautions (continue airborne/contact 2/2 COVID-19 until 07/17/20) * O2 as needed for comfort * caseworker protective services consult for discharge planning * Hospice consultation * Discontinue AM labs * Discontinue vital signs * Discontinue VTE prophylaxis for comfort care * CODE STATUS DNR/DNI/Comfort care - Changed 07/14/20 after discussion with patient. * Discharge on comfort care pending placement - likely Sunday to as they will not accept until then
[2020-07-18] MEDS: Morphine 2 MG/ML SYRINGE IVPUSH PRN ×7 (03:11→15:27)
[2020-07-18] MEDS: LORazepam 2 MG/ML SDV IVPUSH PRN ×2 (07:17→11:12)
--- NOTE | 2020-07-18 16:37 | PCM.DCSUM1 ---
Discharge Summary - Hospital Course HPI Initial Comments: 89-year-old male with history of left renal carcinoma diagnosed in May and diagnosed with Covid on routine testing at [facility] assisted living presenting to the emergency department yesterday with worsening generalized weakness. Patient states that the weakness has been going on for approximately 1 week and yesterday was unable to walk because of his weakness. Patient was kept in the emergency department overnight secondary to no beds being available. Patient is unable to return to [facility] because of his weakness. Patient has refused treatment with radiation and chemo and he is not a surgical candidate. He request to be kept comfortable, continue on his medications, to be treated for his pain. He does complain of bilateral lower extremity leg pain especially in his calves. He uses some kind of ointment on them. Assessment Failure to thrive Metastatic renal cell carcinomanot receiving treatment COVID-19 pneumonia Neutropenia * Patient is failing at his current assisted living, [facility]. * Patient will need physical therapy for possible return to [facility] or will need SNF placement. * Currently not requiring oxygen and chest x-ray shows no improvement in his chest x-ray. * Patient is pancytopenic with significant neutropenia. Absolute neutrophils 880. * Inflammatory markers elevated including a D-dimer of 1.0, C-reactive protein of 14.9 which could be exacerbated from his renal cell carcinoma, Ferritin 437, * Patient has significant pain in his back and legs. Unsure if this is cancer related or not. Chronic medical problems: Hypertension, hypothyroidism, neuropathy, BPH, edema Plan * Admit to medical floor for failure to thrive * PT/OT consult * Monitor oxygen saturations * Pain management * FiO2 if oxygen saturations drop below 94%. * Dietary consult * business services associate consult for discharge planning * VTE prophylaxis with Lovenox * CODE STATUS DNR/DNI - Discharge Data Discharge Date: 07/18/20 Discharge Disposition: 20 Condition: - Referral to Home Health Primary Care Physician: Tirso Magdaleno MD - Discharge Diagnosis/Problem(s) (1) Failure to thrive in adult SNOMED Code(s): 295496477 ICD Code: R62.7 - ADULT FAILURE TO THRIVE Status: Acute Priority: High Current Visit: Yes (2) Leg pain, bilateral SNOMED Code(s): 26447608 ICD Code: M79.604 - PAIN IN RIGHT LEG; M79.605 - PAIN IN LEFT LEG Status: Acute Priority: High Current Visit: Yes (3) Back pain SNOMED Code(s): 642112257 ICD Code: M54.9 - DORSALGIA, UNSPECIFIED Status: Acute Priority: High Current Visit: Yes Qualifiers: Back pain location: low back pain Chronicity: acute Back pain laterality: unspecified Sciatica presence: without sciatica Qualified Code(s): M54.5 - Low back pain (4) Generalized weakness SNOMED Code(s): 28992854 ICD Code: R53.1 - WEAKNESS Status: Acute Priority: High Current Visit: Yes (5) Pneumonia due to COVID-19 virus SNOMED Code(s): 760019674411230587 ICD Code: U07.1 - COVID-19; J12.89 - OTHER VIRAL PNEUMONIA Status: Acute Priority: High Current Visit: Yes (6) Renal cancer Status: Acute Priority: High Current Visit: Yes Qualifiers: Laterality: left Qualified Code(s): C64.2 - Malignant neoplasm of left kidney, except renal pelvis (7) COVID-19 virus infection SNOMED Code(s): 338795056 ICD Code: U07.1 - COVID-19 Status: Acute Priority: High Current Visit: Yes - Patient Summary/Data Consults: Consultations 07/14/20 09:47 Consult to Case Management/Wire Loop Machine Operator [CONS] Routine 07/14/20 15:31 Consult to Hospice [CONS] Routine 07/14/20 15:32 Consult to Spiritual Care [CONS] Routine Hospital Course: Doing was admitted and stated he was not going to seek any additional treatment for his cancer. He also stated that he did not want any treatment for COVID-19 and he was "ready to ." Patient was placed on comfort measures at his request and plan was to discharge him to [facility] on Sunday. Patient this afternoon comfortably after seeing family. - Discharge Plan *PRESCRIPTION DRUG MONITORING PROGRAM REVIEWED*: Not Applicable *COPY OF PRESCRIPTION DRUG MONITORING REPORT IN PATIENT JORGE: Not Applicable Home Medications: Home Meds Acetaminophen 1,000 mg PO TID PRN 07/09/20 [History] Furosemide 20 mg PO DAILY 07/09/20 [History] Gabapentin [Neurontin] 100 mg PO BID 07/09/20 [History] Levothyroxine [Synthroid] 100 mcg PO DAILY 07/09/20 [History] Tamsulosin [Flomax] 0.4 mg PO BID 07/09/20 [History] Triamterene/Hydrochlorothiazid [Triamterene-HCTZ 75-50 MG] 25 - 37.5 mg PO DAILY 07/09/20 [History] polyethylene glycoL 3350 [MiraLAX] 17 gm PO BEDTIME 07/09/20 [History] traMADol [Ultram] 50 mg PO QID PRN 07/09/20 [History] Ascorbic Acid [Vitamin C] 1,000 mg PO BID 07/13/20 [History] Cholecalciferol (Vitamin D3) [Vitamin D3] 1,000 unit PO BID 07/13/20 [History] Multivitamin 1 tab PO DAILY 07/13/20 [History] Zinc 25 mg PO DAILY 07/13/20 [History] Patient Handouts: Sepsis, Diagnosis, Adult Forms: ED Department Discharge Referrals: Tiros Magdaleno MD [Primary Care Provider] - - Discharge Summary/Plan Comment DC Time >30 min.: No - General Info Date of Service: 07/18/20 Admission Dx/Problem (Free Text: Admission Diagnosis/Problem Admission Diagnosis/Problem Weakness Subjective Update: Patient pronounced at 1619. - Patient Data Vitals - Most Recent: Last Vital Signs Temp 97.1 F 07/17/20 08:09 Pulse 96 07/17/20 08:09 Resp 20 07/17/20 08:09 BP 154/64 H 07/17/20 08:09 Pulse Ox 87 L 07/17/20 12:06 Weight - Most Recent: 152 lb I&O - Last 24 hours: Intake & Output 07/18/20 07/18/20 07/18/20 06:59 14:59 22:59 Output Total 250 260 Balance -250 -260 Med Orders - Current: Current Medications Lorazepam (Ativan) 0.5 mg IVPUSH Q4H PRN PRN Reason: Other Last Admin: 07/18/20 11:12 Dose: 0.5 mg Documented by: Morphine Sulfate (Morphine) 2 mg IVPUSH Q2H PRN PRN Reason: Breakthrough Pain Last Admin: 07/18/20 15:27 Dose: 2 mg Documented by: Ondansetron HCl (Zofran) 4 mg IV Q4H PRN PRN Reason: Nausea/Vomiting Last Admin: 07/15/20 03:22 Dose: 4 mg Documented by: Sodium Chloride (Saline Flush) 10 ml FLUSH ASDIRECTED PRN PRN Reason: Keep Vein Open Last Admin: 07/13/20 00:50 Dose: 10 ml Documented by: Discontinued Medications Acetaminophen (Tylenol) 650 mg PO NOW STA Stop: 07/13/20 01:08 Last Admin: 07/13/20 01:21 Dose: 650 mg Documented by: Acetaminophen (Tylenol) 975 mg PO NOW ONE Stop: 07/13/20 14:02 Last Admin: 07/13/20 14:51 Dose: 975 mg Documented by: Acetaminophen (Tylenol) 650 mg PO Q4H PRN PRN Reason: Pain (Mild 1-3)/fever Last Admin: 07/14/20 05:20 Dose: 650 mg Documented by: Hydrocodone Bitart/Acetaminophen ([place] 325-5 Mg) 2 tab PO Q4H PRN PRN Reason: Pain (moderate 4-6) Last Admin: 07/16/20 06:11 Dose: 2 tab Documented by: Enoxaparin Sodium (Lovenox) 40 mg SUBCUT DAILY [facility] Last Admin: 07/14/20 11:48 Dose: 40 mg Documented by: Furosemide (Lasix) 20 mg PO DAILY [facility] Last Admin: 07/14/20 09:04 Dose: 20 mg Documented by: Gabapentin (Neurontin) 100 mg PO BID [facility] Last Admin: 07/17/20 08:08 Dose: Not Given Documented by: Dextrose/Lactated Ringer's (Dextrose 5%-Lactated Ringers) 1,000 mls @ 75 mls/hr IV ASDIRECTED [facility] Last Admin: 07/13/20 00:49 Dose: 75 mls/hr Documented by: Sodium Chloride (Normal Saline) 1,000 mls @ 999 mls/hr IV ONETIME [facility] Last Admin: 07/13/20 01:42 Dose: 999 mls/hr Documented by: Magnesium Sulfate (Magnesium Sulfate In Water Premix) 2 gm in 50 mls @ 25 mls/hr IV ONETIME ONE Stop: 07/14/20 16:59 Last Admin: 07/16/20 07:34 Dose: Not Given Documented by: Levothyroxine Sodium (Synthroid) 100 mcg PO ACBREAKFAST [facility] Last Admin: 07/14/20 05:03 Dose: 100 mcg Documented by: Lorazepam (Ativan) 0.5 mg PO Q8H PRN PRN Reason: Anxiety Last Admin: 07/16/20 16:05 Dose: 0.5 mg Documented by: Morphine Sulfate (Morphine) 2 mg IVPUSH ONETIME ONE Stop: 07/13/20 03:07 Last Admin: 07/13/20 03:20 Dose: 2 mg Documented by: Morphine Sulfate (Morphine) 2 mg IVPUSH ONETIME ONE Stop: 07/13/20 05:15 Last Admin: 07/13/20 05:20 Dose: 2 mg Documented by: Morphine Sulfate (Morphine) 2 mg IVPUSH Q2H PRN PRN Reason: Pain (severe 7-10) Stop: 07/14/20 18:22 Last Admin: 07/14/20 16:35 Dose: 2 mg Documented by: Polyethylene Glycol (Miralax) 17 gm PO BEDTIME [facility] Last Admin: 07/14/20 23:45 Dose: Not Given Documented by: Polyethylene Glycol (Miralax) 17 gm PO DAILY [facility] Last Admin: 07/17/20 08:08 Dose: Not Given Documented by: Tamsulosin HCl (Flomax) 0.4 mg PO BID [facility] Last Admin: 07/17/20 09:17 Dose: Not Given Documented by: Tramadol HCl (Ultram) 50 mg PO ONETIME ONE Stop: 07/13/20 14:02 Last Admin: 07/13/20 14:52 Dose: 50 mg Documented by: Tramadol HCl (Ultram) 50 mg PO QID PRN PRN Reason: Pain Last Admin: 07/15/20 03:22 Dose: 50 mg Documented by: - Exam General: Reports: Other (Unresponsive) HEENT: Reports: Pupils Equal, Other (Pupils are nonreactive) Lungs: Reports: Other (No breath sounds) Cardiovascular: Reports: Other (No heart sounds)
== END 2020-07-18 17:18 | disposition expired | DRG 947 ==
LOC: JD.ED 23:35 → JD.ICU 07-13 16:44
PROVIDERS: ADMIT Family Medicine; ATTEND Family Medicine
PROC: 8E0ZXY6 Isolation (ICD-10-PCS; principal; 2020-07-12)
DX: R53.1 Weakness (principal); J12.89 Other viral pneumonia; U07.1 COVID-19; E43 Unspecified severe protein-calorie malnutrition; R26.89 Other abnormalities of gait and mobility; C64.2 Malignant neoplasm of left kidney, except renal pelvis; Z88.8 Allergy status to other drugs, medicaments and biological substances; J44.0 Chronic obstructive pulmonary disease with (acute) lower respiratory infection; E87.1 Hypo-osmolality and hyponatremia; D61.818 Other pancytopenia; I10 Essential (primary) hypertension; E03.9 Hypothyroidism, unspecified; G62.9 Polyneuropathy, unspecified; D70.9 Neutropenia, unspecified; Z51.5 Encounter for palliative care; H54.7 Unspecified visual loss; M79.604 Pain in right leg; Z66 Do not resuscitate; M54.5 Low back pain; R26.2 Difficulty in walking, not elsewhere classified; E83.42 Hypomagnesemia; H91.90 Unspecified hearing loss, unspecified ear; R31.0 Gross hematuria; N40.1 Benign prostatic hyperplasia with lower urinary tract symptoms; R33.8 Other retention of urine; R60.9 Edema, unspecified; Z79.1 Long term (current) use of non-steroidal anti-inflammatories (NSAID); Z79.890 Hormone replacement therapy; Z79.899 Other long term (current) drug therapy; Z79.891 Long term (current) use of opiate analgesic; Z79.83 Long term (current) use of bisphosphonates; Z79.4 Long term (current) use of insulin; Z87.891 Personal history of nicotine dependence; Z68.20 Body mass index [BMI] 20.0-20.9, adult; Z98.42 Cataract extraction status, left eye; Z98.41 Cataract extraction status, right eye; Z99.81 Dependence on supplemental oxygen; F41.9 Anxiety disorder, unspecified
CPT/HCPCS: 36415; 71045; 72100; 80053; 81001; 82728; 83615; 84484; 85025; 85379; 86140; 93005; 96374; 96376; 99285; A9270 ×3; J2270 ×2; J7030; J7121; 51701; 51702; 80048; 83735; 93010; 97163-GP; 97165-GO; 99222; 99232; 99233; 99238; J1650; J2060; J2405